=== PATIENT | male | born 1970 | race Caucasian/White ===

== ENCOUNTER 2017-12-16 11:14 | Emergency (ER) | payer OTHER, BC ==
[2017-12-16 11:51] VITALS: BP 121/58; PULSE 75; TEMP 98.2; BMI 32.8
--- NOTE | 2017-12-16 12:39 | PDOC ---
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 There was no LOC, no other facial injury, denies dental injury. No neck or extremity injury Occurred: reports: just prior to arrival, this morning Severity: reports: moderate Pain Location: reports: face Modifying Factors: improves with: None Loss of Consciousness: no loss of consciousness Associated Symptoms (Fall): denies symptoms Past History - Travel Traveled outside of the country in the last 30 days: No Close contact w/someone who was outside of country & ill: No - Past Medical History Allergies/Adverse Reactions: Allergies Allergy/AdvReac Type Severity Reaction Status Date / Time No Known Allergies Allergy Verified 12/16/17 11:49 Home Medications: Ambulatory Orders NK [No Known Home Medication] 12/16/17 COPD: No Other medical history: multiple sclerosis - Suicide/Smoking/Psychosocial Hx Smoking History: Never smoked Hx Alcohol Use: No Drug/Substance Use Hx: No Review of Systems - Review of Systems Able to Perform ROS?: Yes Is the patient limited Kazakh proficient: Yes Constitutional: Yes: See HPI. No: Symptoms Reported HEENTM: Yes: See HPI. No: Symptoms Reported Integumentary: Yes: Symptoms Reported, See HPI. No: Other (laceration to chin) All Other Systems: Reviewed and Negative *Physical Exam - Vital Signs Last Vital Signs Temp Pulse Resp BP Pulse Ox 98.2 F 75 16 121/58 L 97 12/16/17 11:45 12/16/17 11:45 12/16/17 11:45 12/16/17 11:45 12/16/17 11:45 - Physical Exam General Appearance: Yes: Nourished, Appropriately Dressed, Apparent Distress, Mild Distress HEENT: positive: TAMIKA, Normal ENT Inspection, TMs Normal, Pharynx Normal, Other Neck: positive: Supple. 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 NML intact, Fully Oriented, Alert, Normal Mood/ Affect, Normal Response, Motor Strength 5/5 Procedures - Laceration/Wound Repair Right Face Wound Length: to 2.5 cm Wound Explored: clean Wound's Depth, Shape: linear Irrigated w/ Saline: Yes Betadine Prep: Yes Anesthesia: 1% Lidocaine Wound Repaired With: Sutures Suture Size/Type: 5:0 Number of Sutures: 6 Layer Closure: No Progress Note - Progress Note Progress Note: Status post fall with chin laceration, repaired *DC/Admit/Observation/Transfer Diagnosis at time of Disposition: Laceration of chin without complication Qualifiers: Encounter type: initial encounter Qualified Code(s): S01.81XA - Laceration without foreign body of other part of head, initial encounter - Discharge Dispostion Disposition: HOME Condition at time of disposition: Stable Decision to Admit order: No - Referrals - Patient Instructions Printed Discharge Instructions: DI for Laceration Repair Additional Instructions: Rest, elevate, avoid strenuous activity or heavy lifting until sutures are removed Leave dressing on for the next 24 hours, Then may remove dressing gently and wash area with soap and water. Reapply bacitracin ointment and dressing daily for the next 5 days On day #6 keep the wound protected and cover as needed until sutures are removed allowing wound to start to dry May use Tylenol or Motrin for pain relief Suture removal in : 7 Days - Post Discharge Activity Forms/Work/School Notes: Back to Work
[2017-12-16] MEDS ORDERED: DIPHTH,PERTUSS(ACELL),TET 0.5 ML DISP.SYRIN IM ONE (13:07)
== END 2017-12-16 13:20 | disposition home or self-care (01) ==
LOC: JERFT 11:14
PROC: 3E0234Z Introduction of Serum, Toxoid and Vaccine into Muscle, Percutaneous Approach (ICD-10-PCS; principal; 2017-12-16)
PROC: 0HQ1XZZ Repair Face Skin, External Approach (ICD-10-PCS; 2017-12-16)
DX: S01.81XA Laceration without foreign body of other part of head, initial encounter (principal); W01.198A Fall on same level from slipping, tripping and stumbling with subsequent striking against other object, initial encounter; Y93.89 Activity, other specified; Y92.69 Other specified industrial and construction area as the place of occurrence of the external cause; Y99.0 Civilian activity done for income or pay; G35 Multiple sclerosis
CPT/HCPCS: 90715; 99281-25

== ENCOUNTER 2018-06-23 09:18 | Emergency (ER) | payer BC, OTHER ==
[2018-06-23 09:36] VITALS: BMI 36.6
--- NOTE | 2018-06-23 09:57 | PDOC ---
History of Present Illness <Trena Yang - Last Filed: 06/23/18 14:10> - General History Source: Patient Exam Limitations: No Limitations - History of Present Illness Initial Comments: 06/23/18 09:55 Pt is a 47yo M with PMH of Multiple Sclerosis presenting to ED for chest discomfort. Pt states the symptoms started yesterday, woke him up from his sleep at around 4:30am. He states he felt palpitations x2 minutes and a discomfort in the middle of his chest for 10 minutes. He took alkaseltzer and the sensation resolved. Pain returned again today this morning at around the same time but less severe and resolved on its own. At around 8am while pt was at work, he drank coffee and afterward the sensation returned but this time he felt "a sensation" on the L side of his face which is different than the MS. The sensation was brief and pt describes it as "when your hand falls asleep". Pt is not having active complaints at this time. Denies sob, cough, recent illnesses, leg swelling, recent travel/surgery, abdominal pain, n/v/d, FH of CO , FH of clotting d/o. PMD: Gabby Neuro: Alycia PMH: see hpi PSH: none Meds: see med rec Allergies: nkda Social: denies <Elissa Stover - Last Filed: 06/23/18 14:14> - General Chief Complaint: Palpitations Stated Complaint: CHEST PAIN Time Seen by Provider: 06/23/18 09:37 Past History <Trena Yang - Last Filed: 06/23/18 14:10> - Past Medical History COPD: No Other medical history: MS - Suicide/Smoking/Psychosocial Hx Smoking History: Unknown if ever smoked Hx Alcohol Use: No Drug/Substance Use Hx: No <Elissa Stover - Last Filed: 06/23/18 14:14> - Past Medical History Allergies/Adverse Reactions: Allergies Allergy/AdvReac Type Severity Reaction Status Date / Time No Known Allergies Allergy Verified 06/23/18 09:36 Home Medications: Ambulatory Orders Baclofen 10 mg PO TID 06/23/18 Natalizumab [Tysabri] 200 mg IV MONTHLY 06/23/18 *Physical Exam - Vital Signs Last Vital Signs Temp Pulse Resp BP Pulse Ox 98.5 F 74 18 144/68 99 04/02/19 09:50 06/23/18 09:50 06/23/18 09:50 06/23/18 09:50 06/23/18 09:50 <Trena Yangyulia - Last Filed: 06/23/18 14:10> - Vital Signs Last Vital Signs Temp Pulse Resp BP Pulse Ox 98.3 F 78 17 136/64 99 06/23/18 09:29 06/23/18 09:29 06/23/18 09:29 06/23/18 09:29 06/23/18 09:29 <Elissa Stover - Last Filed: 06/23/18 14:14> ED Treatment Course - LABORATORY CBC & Chemistry Diagram: 06/23/18 10:15 06/23/18 10:15 - ADDITIONAL ORDERS Additional order review: Laboratory Results 06/23/18 06/23/18 06/23/18 13:18 10:15 10:15 Sodium 139 Cancelled Potassium 4.1 Cancelled Chloride 106 Cancelled Carbon Dioxide 26 Cancelled Anion Gap 7 L Cancelled BUN 10 Cancelled Creatinine 0.9 Cancelled Creat Clearance w eGFR 91.25 Cancelled Random Glucose 114 H Cancelled Calcium 9.3 Cancelled Magnesium 2.3 Cancelled Total Bilirubin 0.5 Cancelled AST 19 Cancelled ALT 45 Cancelled Alkaline Phosphatase 102 Cancelled Troponin I < 0.02 < 0.02 Total Protein 7.1 Cancelled Albumin 4.2 Cancelled Lipase 177 06/23/18 10:15 RBC 4.75 MCV 90.8 MCHC 33.8 RDW 14.0 MPV 10.2 Neutrophils % 70.3 Lymphocytes % 19.9 Monocytes % 5.5 Eosinophils % 3.4 Basophils % 0.9 - Medications Given in the ED: ED Medications Discontinued Medications Generic Name Dose Route Start Last Admin Trade Name Freq PRN Reason Stop Dose Admin Al Hydroxide/Mg Hydroxide 30 ml 06/23/18 11:09 06/23/18 11:25 Mylanta Oral Suspension - PO 06/23/18 11:10 30 ml ONCE ONE Administration Famotidine/Sodium Chloride 20 mg in 50 mls @ 100 mls/hr 06/23/18 11:09 11:25 Pepcid 20 Mg Premixed Ivpb - IVPB 06/23/18 11:38 100 mls/hr ONCE ONE Administration <Trena Yang - Last Filed: 06/23/18 14:10> - LABORATORY CBC & Chemistry Diagram: 06/23/18 10:15 06/23/18 10:15 <Elissa Stover - Last Filed: 06/23/18 14:14> Medical Decision Making - Medical Decision Making 06/23/18 10:39 Pt is a 47yo M with PMH of Multiple Sclerosis presenting to ED for chest discomfort. Pt states the symptoms started yesterday, woke him up from his sleep at around 4:30am. He states he felt palpitations x2 minutes and a discomfort in the middle of his chest for 10 minutes. He took alkaseltzer and the sensation resolved. Pain returned again today this morning at around the same time but less severe and resolved on its own. At around 8am while pt was at work, he drank coffee and afterward the sensation returned but this time he felt "a sensation" on the L side of his face which is different than the MS. The sensation was brief and pt describes it as "when your hand falls asleep". Pt is not having active complaints at this time. Denies sob, cough, recent illnesses, leg swelling, recent travel/surgery, abdominal pain, n/v/d, FH of CO , FH of clotting d/o. Vitals: wnl PE: benign ddx includes but not limited to GERD, acs, pe, dissection, electrolyte/ metabolic abnormality, MS, valvular abnormality PERC negative. no risk factors for dissection. -labs -ekg, cxr Pt not having active complaints at this time. -GI cocktain ekg: nsr 06/23/18 11:21 <Elissa Stover - Last Filed: 06/23/18 14:14> *DC/Admit/Observation/Transfer <Trena Yang - Last Filed: 06/23/18 14:10> - Discharge Dispostion Decision to Admit order: No <Elissa Stover - Last Filed: 06/23/18 14:14> Diagnosis at time of Disposition: Chest pain Qualifiers: Chest pain type: unspecified Qualified Code(s): R07.9 - Chest pain, unspecified - Discharge Dispostion Disposition: HOME - Referrals Referrals: Rudi Harper MD [Staff Physician] - - Patient Instructions Printed Discharge Instructions: DI for Atypical Chest Pain Additional Instructions: You were seen in the emergency room today for chest pain. The blood tests and xray were normal. I recommend that you see a forest fire officer and primary doctor. rest and avoid stressors If you have any worsening of symptoms or any other concerns please return to the ED immediately. Return if worsening symptoms including fevers, headache, vomiting, visual or hearing disturbances, abdominal pain, chest pain, shortness of breath, syncope, dehydration, inability to take things by mouth/vomiting, altered mental status, or worsening concerning symptoms.
[2018-06-23 10:46] LABS: BASO % 0.9 % (0-2.0); EOS % 3.4 % (0-4.5); HEMATOCRIT 43.1 % (35.4-49); HEMOGLOBIN 14.6 GM/dL (11.7-16.9); LYMPH % 19.9 % (8-40); MCH 30.7 pg (25.7-33.7); MCHC 33.8 g/dl (32.0-35.9); MEAN CELL VOLUME 90.8 fl (80-96); MEAN PLT VOLUME 10.2 fl (7.5-11.1); MONO % 5.5 % (3.8-10.2); NEUT % 70.3 % (42.8-82.8); PLATELET COUNT 245 K/MM3 (134-434); RBC 4.75 M/mm3 (4.00-5.60); WHITE BLOOD COUNT 11.6 K/mm3 (4.0-10.0)
--- NOTE | 2018-06-23 10:50 | PDOC ---
Attending Attestation - Resident Resident Name: Elissa Stover - ED Attending Attestation I have performed the following: I have examined & evaluated the patient, The case was reviewed & discussed with the resident, I agree w/resident's findings & plan - HPI HPI: 06/23/18 10:49 Pt is a 47yo M with PMH of Multiple Sclerosis presenting to ED for chest discomfort, a/w palpitations, starting yesterday, and woke up from sleep this morning this morning at 430AM, then sx at 730AM. Brief episode of palpitations lasting 2 min, chest discomfort x 10 min, self resolved. Nonexertional, nonradiating. +left jaw/facial numbness/tingling, not associated with cp or palp or sob. Agree with the resident's HPI and PE as documented in the electronic medical record. 06/23/18 11:52 - Physicial Exam PE: 06/23/18 10:49 NAD, well appearing, PERRL, EOMI, MMM, nl conjunctiva, anicteric; neck supple. lungs clear, RRR, abdomen soft nontender. MARIE x4, no focal neuro deficits. No peripheral edema. normal color for ethnicity, WW. - Medical Decision Making 06/23/18 11:52 See HPI for details Vital signs reviewed, wnl. DDx chest pain: ACS, coronary vasospasm, NSTEMI, arrhythmia, unstable angina, PE , dissection, PUD, esophageal spasm, GERD, gastritis, costochondritis, pneumonia , pleurisy, pericarditis/myocarditis. dehydration, electrolyte/metabolic derangements. Considered but clinically doubt based on HPI and PE: PE, PERC neg so low likelihood of VTE/PE, dissection. Prior notes reviewed, including admissions, discharges and consultations. laboratory results and imaging reviewed, basic labs and lytes wnl, notable for normal LFTs and lipase. nonspecific mild leukocytosis of 11.5K, no fever or systemic sx, likely reactive. CXR_unremarkable, no acute chest pathology Cardiac panel_trop neg x2, so less likely cardiac. heart score only 0, low risk for mace <1.7% at 4-6 wks. EKG normal sinus rhythm at 77 bpm, no interval abnormalities, narrow QRS, ST and T wave segments and morphology normal. TWF and low QRS in III only, no contiguous lead changes. ED course -No acute events, well appearing. -Given GI cocktail, no active cp, feels clinically improved and VS wnl. - repeat trop x2 neg, EKG unchanged, no ischemic findings and cp free. - cards referral given, Dr Harper medical office professional instructor. Dispo: Pt informed of my clinical impression, treatment recommendations and disposition plan. All questions answered to patient's satisfaction and expressed understanding and comfort with this. Reasons for returning to the ED sooner discussed with the patient otherwise, follow up with primary care physician. At the time of discharge, the patient is alert, clinically improved, tolerating po and verbalizes understanding of instructions. Patient does not suffer from an acute life-threatening medical condition at this time he is safe for outpatient follow-up. 06/23/18 11:55 06/23/18 11:56 06/23/18 14:12 Heart Score/ECG Review - History History: Slightly suspicious - Electrocardiogram EKG: Normal - Age Age: </= 45 - Risk Factors Based on the list above the patient has:: No risk factors known - Troponin Troponin: </= normal limit - Score Heart Score - Total: 0 #1 ECG reviewed & interpreted by me at: 09:15 General ECG Interpretation: Sinus Rhythm, Normal Rate, Normal Intervals 06/23/18 10:49 EKG normal sinus rhythm at 77 bpm, no interval abnormalities, narrow QRS, ST and T wave segments and morphology normal. TWF and low QRS in III only, no contiguous lead changes.
[2018-06-23] MEDS ORDERED: MAG HYDROX/AL HYDROX/SIMETH 30 ML UNIT-DOSE CUP PO ONE (11:09)
[2018-06-23] MEDS ORDERED: FAMOTIDINE 20 MG/50 ML IVPB 20 MG/50 ML MG IVPB ONE ×2 (11:09→11:21)
[2018-06-23 11:10] LABS: LIPASE 177 U/L (73-393)
[2018-06-23] MEDS ORDERED: MAG HYDROX/AL HYDROX/SIMETH 30 ML UNIT-DOSE CUP ONE (11:20)
[2018-06-23 11:23] LABS: ALBUMIN 4.2 g/dl (3.4-5.0); ALK PHOS 102 U/L (45-117); ANION GAP 7 MMOL/L (8-16); BILIRUBIN,TOTAL 0.5 mg/dL (0.2-1); BLOOD UREA NITROGEN 10 mg/dL (7-18); CALCIUM 9.3 mg/dL (8.5-10.1); CHLORIDE 106 mmol/L (98-107); CO2 26 mmol/L (21-32); CREATININE 0.9 mg/dL (0.55-1.3); GLUCOSE,RANDOM 114 mg/dL (74-106); MAGNESIUM 2.3 mg/dL (1.8-2.4); POTASSIUM 4.1 mmol/L (3.5-5.1); SGOT/AST 19 U/L (15-37); SGPT/ALT 45 U/L (13-61); SODIUM 139 mmol/L (136-145); TOT PROT 7.1 g/dl (6.4-8.2)
[2018-06-23 14:33] VITALS: BP 144/82; PULSE 84; TEMP 98
--- NOTE | 2018-06-24 10:09 | EKG ---
Test Reason : Blood Pressure : / mmHG Vent. Rate : 077 BPM Atrial Rate : 077 BPM P-R Int : 154 ms QRS Dur : 072 ms QT Int : 384 ms P-R-T Axes : 063 019 037 degrees QTc Int : 434 ms NORMAL SINUS RHYTHM POSSIBLE LEFT ATRIAL ENLARGEMENT BORDERLINE ECG WHEN COMPARED WITH ECG OF 12-DEC-2010 23:59, VENT. RATE HAS DECREASED BY 48 BPM Confirmed by ROGERIO MULLIGAN, MERT ([id number]) on 06/24/2018 10:09:42 AM Referred By: Confirmed By:MERT BEATTY MD
--- NOTE | 2018-06-24 10:14 | EKG ---
Test Reason : Blood Pressure : / mmHG Vent. Rate : 079 BPM Atrial Rate : 079 BPM P-R Int : 146 ms QRS Dur : 070 ms QT Int : 388 ms P-R-T Axes : 066 036 023 degrees QTc Int : 444 ms NORMAL SINUS RHYTHM WITH SINUS ARRHYTHMIA NORMAL ECG WHEN COMPARED WITH ECG OF 12-DEC-2010 23:59, VENT. RATE HAS DECREASED BY 46 BPM Confirmed by ROGERIO MULLIGAN, MERT ([id number]) on 06/24/2018 10:13:47 AM Referred By: Confirmed By:MERT BEATTY MD
== END 2018-06-23 14:46 | disposition home or self-care (01) ==
LOC: JER 09:18
PROC: 3E033GC Introduction of Other Therapeutic Substance into Peripheral Vein, Percutaneous Approach (ICD-10-PCS; principal; 2018-06-23)
DX: R07.9 Chest pain, unspecified (principal); G35 Multiple sclerosis
CPT/HCPCS: 36415; 71046-TC-FY; 80053; 83690; 83735; 84484; 85025; 93005; 93010; 99285-25

== ENCOUNTER 2018-06-24 04:28 | Emergency (ER) | payer BC ==
[2018-06-24 04:55] VITALS: BMI 32.2
--- NOTE | 2018-06-24 05:34 | PDOC ---
Attending Attestation - HPI HPI: 06/24/18 05:45 The patient is a 47 year old male, with a significant past medical history of MS , who presents to the emergency department with, palpitations and epigastric discomfort. Patient notes being evaluated for a similar episode 06/23 at which time he had a negative workup and was discharged home. He denies any recent fevers, chills, headache or dizziness. He denies any recent nausea, vomit, diarrhea or constipation. He denies any recent dysuria, frequency, urgency or hematuria. Allergies: NKDA Primary Care Physician: Dr. Murillo Neurologist: Dr. Tong - Physicial Exam PE: 06/24/18 05:45 Agree with resident exam. <George Rizzo - Last Filed: 06/24/18 05:45> - Resident Resident Name: Doug Montez - ED Attending Attestation I have performed the following: I have examined & evaluated the patient, The case was reviewed & discussed with the resident, I agree w/resident's findings & plan - Medical Decision Making 06/24/18 06:03 47-year-old male complaining of palpitations substernal discomfort and tightening to the left jaw yesterday and today Patient seen in the emergency department with a negative workup but states it happened again so he came in for evaluation Plan for observation stay in light of worsening symptoms EKG today showed a normal sinus rhythm at 75 bpm with no acute ST elevations <So Horton - Last Filed: 06/24/18 06:05> Attestations - Attestations 06/24/18 05:45 Documentation prepared by George Rizzo, acting as medical claims analyst for So Horton DO. <George Rizzo - Last Filed: 06/24/18 05:45>
[2018-06-24 06:11] LABS: BASO % 0.9 % (0-2.0); EOS % 2.4 % (0-4.5); HEMATOCRIT 40.8 % (35.4-49); HEMOGLOBIN 13.9 GM/dL (11.7-16.9); LYMPH % 29.5 % (8-40); MCH 30.4 pg (25.7-33.7); MEAN CELL VOLUME 89.5 fl (80-96); MEAN PLT VOLUME 9.5 fl (7.5-11.1); NEUT % 60.2 % (42.8-82.8); PLATELET COUNT 227 K/MM3 (134-434); RBC 4.56 M/mm3 (4.00-5.60); RDW 13.9 % (11.9-15.9); WHITE BLOOD COUNT 11.4 K/mm3 (4.0-10.0)
--- NOTE | 2018-06-24 06:32 | PDOC ---
History of Present Illness - General Chief Complaint: Pain Stated Complaint: ABD PAIN Time Seen by Provider: 06/24/18 05:24 - History of Present Illness Initial Comments: 06/24/18 06:35 47M with pmh of MS, who presents to the emergency department with, palpitations and epigastric discomfort for the pasr 3-5 days. Evaluated and discharged yesterday morning 06/23 at which time he had a negative workup and was discharged home. He denies any recent fevers, chills, headache or dizziness. He denies any recent nausea, vomit, diarrhea or constipation. He denies any recent dysuria, frequency, urgency or hematuria. Allergies: NKDA Primary Care Physician: Dr. Murillo Neurologist: Dr. Tong Past History - Past Medical History Allergies/Adverse Reactions: Allergies Allergy/AdvReac Type Severity Reaction Status Date / Time No Known Allergies Allergy Verified 06/23/18 09:36 Home Medications: Ambulatory Orders Baclofen 10 mg PO TID 06/23/18 Natalizumab [Tysabri] 200 mg IV MONTHLY 06/23/18 COPD: No - Suicide/Smoking/Psychosocial Hx Smoking History: Never smoked Have you smoked in the past 12 months: No Hx Alcohol Use: No Drug/Substance Use Hx: No Review of Systems - Review of Systems Able to Perform ROS?: Yes Is the patient limited Brazilian proficient: No Constitutional: No: Symptoms Reported HEENTM: No: Symptoms Reported Respiratory: No: Symptoms reported Cardiac (ROS): Yes: See HPI ABD/GI: Yes: See HPI : No: Symptoms Reported Musculoskeletal: No: Symptoms Reported Integumentary: No: Symptoms Reported All Other Systems: Reviewed and Negative *Physical Exam - Vital Signs Last Vital Signs Temp Pulse Resp BP Pulse Ox 97.5 F L 77 16 113/65 100 06/24/18 04:48 06/24/18 04:48 06/24/18 04:48 06/24/18 04:48 06/24/18 04:48 - Physical Exam General Appearance: Yes: Nourished, Appropriately Dressed. No: Apparent Distress HEENT: positive: EOMI, TAMIKA, Normal ENT Inspection Respiratory/Chest: positive: Lungs Clear, Normal Breath Sounds. negative: Chest Tender, Respiratory Distress Cardiovascular: positive: Regular Rhythm, Regular Rate, S1, S2 Gastrointestinal/Abdominal: positive: Normal Bowel Sounds, Flat, Soft. negative : Tender Musculoskeletal: positive: Normal Inspection. negative: CVA Tenderness Neurologic: positive: Fully Oriented, Normal Mood/Affect, Normal Response, Motor Strength 07/26 ED Treatment Course - LABORATORY CBC & Chemistry Diagram: 06/24/18 06:03 06/24/18 06:03 - ADDITIONAL ORDERS Additional order review: 06/24/18 06:03 RBC 4.56 MCV 89.5 MCHC 34.0 RDW 13.9 MPV 9.5 Neutrophils % 60.2 Lymphocytes % 29.5 D Monocytes % 7.0 Eosinophils % 2.4 Basophils % 0.9 Medical Decision Making - Medical Decision Making 06/24/18 06:38 47M with palpitations substernal discomfort and tightening to the left jaw yesterday and today EKG today showed a normal sinus rhythm at 75 bpm with no acute ST elevations Normal ekg again today. Will redraw basic labs, tsh and admit for obs due to worsening symptoms with cardio consult. Anxiety vs thyroid vs cardiac arrhythmia needing holter evaluation. 06/24/18 07:02 Patient signed out to Dr. Lara *DC/Admit/Observation/Transfer Diagnosis at time of Disposition: Palpitation - Referrals Referrals: Tessie Suh MD [Primary Care Provider] - - Patient Instructions - Post Discharge Activity
[2018-06-24 06:51] LABS: ALBUMIN 3.7 g/dl (3.4-5.0); ALK PHOS 89 U/L (45-117); ANION GAP 4 MMOL/L (8-16); BILIRUBIN,TOTAL 0.6 mg/dL (0.2-1); BLOOD UREA NITROGEN 13 mg/dL (7-18); CALCIUM 8.7 mg/dL (8.5-10.1); CHLORIDE 110 mmol/L (98-107); CO2 27 mmol/L (21-32); CREATININE 0.8 mg/dL (0.55-1.3); GLUCOSE,RANDOM 112 mg/dL (74-106); POTASSIUM 3.8 mmol/L (3.5-5.1); SGOT/AST 17 U/L (15-37); SGPT/ALT 40 U/L (13-61); SODIUM 140 mmol/L (136-145); TOT PROT 6.3 g/dl (6.4-8.2)
--- NOTE | 2018-06-24 07:29 | PDOC ---
*Physical Exam - Vital Signs Last Vital Signs Temp Pulse Resp BP Pulse Ox 97.5 F L 77 16 113/65 100 06/24/18 04:48 06/24/18 04:48 06/24/18 04:48 06/24/18 04:48 06/24/18 04:48 ED Treatment Course - LABORATORY CBC & Chemistry Diagram: 06/24/18 06:03 06/24/18 06:03 - ADDITIONAL ORDERS Additional order review: Laboratory Results 06/24/18 06:03 Sodium 140 Potassium 3.8 Chloride 110 H Carbon Dioxide 27 Anion Gap 4 L BUN 13 Creatinine 0.8 Creat Clearance w eGFR 104.54 Random Glucose 112 H Calcium 8.7 Total Bilirubin 0.6 AST 17 ALT 40 Alkaline Phosphatase 89 Troponin I < 0.02 Total Protein 6.3 L Albumin 3.7 TSH 1.26 06/24/18 06:03 RBC 4.56 MCV 89.5 MCHC 34.0 RDW 13.9 MPV 9.5 Neutrophils % 60.2 Lymphocytes % 29.5 D Monocytes % 7.0 Eosinophils % 2.4 Basophils % 0.9 Medical Decision Making - Medical Decision Making 06/24/18 07:10 Sign out received from Dr Montez. Juliocesar Collazo is a 47yo man with a PMH of MS who presented overnight for the second day in a row with palpitations and substernal discomfort that radiated to the left jaw. ED course notable for normal EKG, labs sent - Labs reviewed. Unremarkable - Given worsening symptoms and persistent feeling of palpitations, will likely need echo and car 06/24/18 07:29 - Re-evaluated Mr Collazo. Now feeling well, but reports that he has had palpitations and feeling of suffocation that woke him at around 3am multiple times over the past week. Possible sleep apnea; mother and report snoring and restless sleeping. - Will recheck EKG and trop. - Echo ordered for evaluation. Reports having echo in the past; will compare - Plan to call PMD after additional tests completed to discuss dispo vs admit/ obs if any abnormalities are noted. 06/24/18 12:03 - Echo completed. No concerning abnormalities. - Call placed to PMD's office. Requested call back - Updated pt and family regarding results - Spoke to Dr Ross. Would prefer to see Mr Collazo in the ED. 06/24/18 12:32 - Seen by Dr Ross. Agrees with plan, will set up for holter monitor - Will d/c home. Discussed with Dr Carranza. Amanda Lara PGY1 *DC/Admit/Observation/Transfer Diagnosis at time of Disposition: Palpitation, Chest pain - Discharge Dispostion Disposition: HOME Condition at time of disposition: Stable Decision to Admit order: No - Referrals Referrals: Tessie Suh MD [Primary Care Provider] - Sivakumar Puente MD [Staff Physician] - - Patient Instructions Printed Discharge Instructions: DI for Chest Pain, DI for Palpitations Additional Instructions: Discharge Instructions: You were seen in the emergency deparmtent for chest pain and palpitations that have been occuring for the past week. You had blood tests, two sets of cardiac enzymes, two EKG's, and an echocardiogram. All of your results were normal. Home Care and Follow Up: - Continue taking all of your regular home medications as prescribed. - Make an appointment to see your regular doctor for follow up within the next week. - You will need to set up a follow up appointment with Dr Olsen (cardiology ) as soon as possible - Seek immediate medical care if you have worsening symptoms, difficulty breathing, chest pain with exercise, or any other medical emergency. - Post Discharge Activity
--- NOTE | 2018-06-24 10:15 | EKG ---
Test Reason : Blood Pressure : / mmHG Vent. Rate : 075 BPM Atrial Rate : 075 BPM P-R Int : 154 ms QRS Dur : 080 ms QT Int : 394 ms P-R-T Axes : 064 029 033 degrees QTc Int : 439 ms NORMAL SINUS RHYTHM NORMAL ECG WHEN COMPARED WITH ECG OF 23-JUN-2018 13:17, NO SIGNIFICANT CHANGE WAS FOUND Confirmed by MERT BEATTY MD ([id number]) on 06/24/2018 10:15:37 AM Referred By: Confirmed By:MERT BEATTY MD
--- NOTE | 2018-06-24 12:12 | PDOC ---
*Physical Exam - Vital Signs Last Vital Signs Temp Pulse Resp BP Pulse Ox 97.5 F L 77 16 113/65 100 06/24/18 04:48 06/24/18 04:48 06/24/18 07:22 06/24/18 04:48 06/24/18 07:22 - Physical Exam Comments: 06/24/18 12:09 Patient endorsed to me by Dr. Horton. Patient is a 47-year-old male with history of MS onto Sabri presents to the ER with recurrent palpitations and shortness of breath that resolves prior to presentation. Symptoms occur predominantly at night and awakened the patient from sleep. There is no history of toxic ingestion or history of early cardiac in the family. In the ER, patient is awake and alert, well-appearing, hemodynamically stable. EKG shows no evidence of acute ischemia. 2 sets of cardiac enzymes are within normal limit. 2-D echocardiogram reveals no evidence of LV dysfunction or significant valvular pathology. Patient seen by Dr. Marcy liu of cardiology. Patient is safe for outpatient follow-up for further evaluation. I also advised the patient that he may benefit from sleep apnea testing. Case discussed with PMD, Claude Loyola and he agrees with the plan of care. Will discharge. ED Treatment Course - LABORATORY CBC & Chemistry Diagram: 06/24/18 06:03 06/24/18 06:03 - ADDITIONAL ORDERS Additional order review: Laboratory Results 06/24/18 06/24/18 08:50 06:03 Sodium 140 Potassium 3.8 Chloride 110 H Carbon Dioxide 27 Anion Gap 4 L BUN 13 Creatinine 0.8 Creat Clearance w eGFR 104.54 Random Glucose 112 H Calcium 8.7 Total Bilirubin 0.6 AST 17 ALT 40 Alkaline Phosphatase 89 Troponin I < 0.02 < 0.02 Total Protein 6.3 L Albumin 3.7 TSH 1.26 06/24/18 06:03 RBC 4.56 MCV 89.5 MCHC 34.0 RDW 13.9 MPV 9.5 Neutrophils % 60.2 Lymphocytes % 29.5 D Monocytes % 7.0 Eosinophils % 2.4 Basophils % 0.9 *DC/Admit/Observation/Transfer Diagnosis at time of Disposition: Palpitation Chest pain Qualifiers: Chest pain type: unspecified Qualified Code(s): R07.9 - Chest pain, unspecified - Discharge Dispostion Disposition: HOME Condition at time of disposition: Stable - Referrals Referrals: Tessie Suh MD [Primary Care Provider] - Sivakumar Puente MD [Staff Physician] - - Patient Instructions Printed Discharge Instructions: DI for Chest Pain, DI for Palpitations Additional Instructions: Discharge Instructions: You were seen in the emergency deparmtent for chest pain and palpitations that have been occuring for the past week. You had blood tests, two sets of cardiac enzymes, two EKG's, and an echocardiogram. All of your results were normal. Home Care and Follow Up: - Continue taking all of your regular home medications as prescribed. - Make an appointment to see your regular doctor for follow up within the next week. - You will need to set up a follow up appointment with Dr Olsen (cardiology ) as soon as possible - Seek immediate medical care if you have worsening symptoms, difficulty breathing, chest pain with exercise, or any other medical emergency. - Post Discharge Activity
--- NOTE | 2018-06-24 12:21 | CON.CARD ---
Consult Consult Specialty:: Cardiology - History of Present Illness History of Present Illness: 47M with pmh of MS, who presents to the emergency department with, palpitations and epigastric discomfort for the pasr 3-5 days. Evaluated and discharged yesterday morning 06/23 at which time he had a negative workup and was discharged home. He denies any recent fevers, chills, headache or dizziness. He denies any recent nausea, vomit, diarrhea or constipation. He denies any recent dysuria, frequency, urgency or hematuria. Allergies: NKDA Primary Care Physician: Dr. Murillo Neurologist: Dr. Tong - History Source History Provided By: Patient, Medical Record - Alcohol/Substance Use Hx Alcohol Use: No - Smoking History Smoking history: Never smoked Have you smoked in the past 12 months: No Home Medications - Allergies Allergies/Adverse Reactions: Allergies Allergy/AdvReac Type Severity Reaction Status Date / Time No Known Allergies Allergy Verified 06/23/18 09:36 - Home Medications Home Medications: Ambulatory Orders Baclofen 10 mg PO TID 06/23/18 Natalizumab [Tysabri] 200 mg IV MONTHLY 06/23/18 Review of Systems - Review of Systems Constitutional: reports: No Symptoms Eyes: reports: No Symptoms HENT: reports: No Symptoms Cardiovascular: reports: Palpitations Respiratory: reports: No Symptoms Gastrointestinal: reports: No Symptoms Genitourinary: reports: No Symptoms Breasts: reports: No Symptoms Reported Musculoskeletal: reports: No Symptoms Integumentary: reports: No Symptoms Neurological: reports: No Symptoms Endocrine: reports: No Symptoms Hematology/Lymphatic: reports: No Symptoms Psychiatric: reports: No Symptoms Vital Signs: Vital Signs Temperature 97.5 F L 06/24/18 04:48 Pulse Rate 77 06/24/18 04:48 Respiratory Rate 16 06/24/18 07:22 Blood Pressure 113/65 06/24/18 04:48 O2 Sat by Pulse Oximetry (%) 100 06/24/18 07:22 Constitutional: Yes: Well Nourished, No Distress, Calm Eyes: Yes: WNL, Conjunctiva Clear, EOM Intact HENT: Yes: WNL, Atraumatic, Normocephalic Neck: Yes: WNL, Supple, Trachea Midline Respiratory: Yes: WNL, Regular, CTA Bilaterally Gastrointestinal: Yes: WNL, Normal Bowel Sounds Renal/: Yes: WNL Cardiovascular: Yes: WNL, Regular Rate and Rhythm Musculoskeletal: Yes: WNL Extremities: Yes: WNL Integumentary: Yes: WNL Neurological: Yes: WNL, Alert, Oriented ...Motor Strength: WNL Psychiatric: Yes: WNL, Alert, Oriented - Other Data Labs, Other Data: CBC, BMP 06/24/18 06:03 06/24/18 06:03 Troponin, BNP 06/24/18 06/24/18 06:03 08:50 Troponin I < 0.02 < 0.02 Troponin, BNP 06/24/18 06/24/18 06:03 08:50 Troponin I < 0.02 < 0.02 Imaging - Results EKG: Image Reviewed (sr wnl) Problem List - Problems (1) Chest pain Code(s): R07.9 - CHEST PAIN, UNSPECIFIED (2) Palpitation Code(s): R00.2 - PALPITATIONS (3) Laceration of chin without complication Code(s): S01.81XA - LACERATION W/O FOREIGN BODY OF OTH PART OF HEAD, INIT ENCNTR Qualifiers: Encounter type: initial encounter Qualified Code(s): S01.81XA - Laceration without foreign body of other part of head, initial encounter Assessment/Plan MS palpitations -at night no cp echo ekg ce negative Plan 24 holter as outpatient lipid profile r/o sleep apnea
--- NOTE | 2018-06-24 13:24 | EKG ---
Test Reason : Blood Pressure : / mmHG Vent. Rate : 073 BPM Atrial Rate : 073 BPM P-R Int : 154 ms QRS Dur : 082 ms QT Int : 388 ms P-R-T Axes : 052 034 042 degrees QTc Int : 427 ms NORMAL SINUS RHYTHM NORMAL ECG WHEN COMPARED WITH ECG OF 24-JUN-2018 05:23, NO SIGNIFICANT CHANGE WAS FOUND Confirmed by MERT BEATTY MD ([id number]) on 06/24/2018 1:24:17 PM Referred By: Confirmed By:MERT BEATTY MD
[2018-06-24 14:49] VITALS: BP 112/51; PULSE 79; TEMP 98
--- NOTE | 2018-06-25 07:39 | ECHO ---
Name: GENNY BHARDWAJ Exam:Adult Echocardiogram Study Date: 06/24/2018 09:20 AM Age: 47 yrs Reason For Study: PALPITATIONS Height: 67 in Weight: 206 lb BSA: 2.0 m2 MMode/2D Measurements & Calculations IVSd: 0.65 cm Ao root diam: 3.4 cm LVIDd: 5.0 cm LA dimension: 3.0 cm LVIDs: 3.2 cm ACS: 1.9 cm LVPWd: 0.74 cm IVSs: 1.1 cm LVPWs: 1.3 cm EDV(Teich): 119.5 ml ESV(Teich): 41.0 ml Doppler Measurements & Calculations MV E max rayray: 67.1 cm/sec Ao V2 max: 120.8 cm/sec MV A max rayray: 60.7 cm/sec Ao max P.8 mmHg MV E/A: 1.1 Ao V2 mean: 82.8 cm/sec Ao mean P.2 mmHg Ao V2 VTI: 23.6 cm Med Peak E' Rayray: 10.6 cm/sec Med E/e': 6.3 Lat Peak E' Rayray: 15.7 cm/sec Lat E/e': 4.3 Procedure A two-dimensional transthoracic echocardiogram with color flow and Doppler was performed. Left Ventricle The left ventricular size, thickness and function are normal. The left ventricular ejection fraction is normal. Left Ventricular Filling pattern is normal for age. The left ventricular wall motion is phu l. Right Ventricle The right ventricle is not well visualized. Atria Normal left and right atrial size and function. Mitral Valve There is trivial mitral valve thickening. There is no mitral valve stenosis. There is trace mitral regurgitation. Tricuspid Valve There is trivial tricuspid valve thickening. There is no tricuspid stenosis. There was insufficient T R detected to calculate RV systolic pressure. Aortic Valve The aortic valve is normal in structure and function. No hemodynamically significant valvular aortic stenosis. No aortic regurgitation is present. Pulmonic Valve The pulmonic valve is not well visualized. Great Vessels The aortic root is normal size. Pericardium/Pleura Trivial pericardial effusion not hemodynamically significant. Interpretation Summary The left ventricular size, thickness and function are normal The left ventricular ejection fraction is normal. The left ventricular wall motion is normal. There was insufficient TR detected to calculate RV systolic pressure. Left Ventricular Filling pattern is normal for age. Trivial pericardial effusion not hemodynamically significant The right ventricle is not well visualized. There is trace mitral regurgitation. MD Rudi Harper 06/24/2018 11:03 AM
== END 2018-06-24 12:30 | disposition home or self-care (01) ==
LOC: JER 04:28
DX: R00.2 Palpitations (principal)
CPT/HCPCS: 36415; 80053; 84443; 84484; 85025; 93005; 93010; 93306-TC; 99284-25

== ENCOUNTER 2018-06-24 17:42 | Inpatient (IN) | payer BC ==
--- NOTE | 2018-06-24 18:18 | PDOC ---
History of Present Illness - General Chief Complaint: Nausea Stated Complaint: NAUSEA Time Seen by Provider: 06/24/18 17:51 History Source: Patient, Parent(s) (Mother present at bedside.), Spouse ( present at bedside.), Old Records Exam Limitations: No Limitations - History of Present Illness Initial Comments: HPI: 47 y/o male BIBEMS to [facility] ER complaining of a near syncopal episode with persistent nausea. Pt states he suddenly felt like I was going to pass out while walking to the bathroom after waking from a nap. Reports feeling cold and clamminess in both hands as well as shortness of breath with rapid breathing. The episode lasted approx. 20 minutes in duration before resolving spontaneously. Denies loss of consciousness. Vida nauseous with occasional burping after the incident. Walks with cane or rollator. No change in ability to ambulate. No known sick contacts. This is the pts third visit to this department in the past two days. The previous chief complaints were for 2-3 minutes of palpitations. Pt was evaluated in the emergency department by cardiology this morning after undergoing reportedly normal Echo. Pt has a h/o of MS managed with monthly infusion of Tysabri, last in middle of May. No change in dosage or medication regimen. Followed by Dr. Tong. Last MRI in [facility] dated 12/13/2010. Not sure of the date of last MS flair. Neurologist: Dr. 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 Denies known toxic exposures. - Denies recent travel in past two months. - EtOH: Social, denies any in last 48 hours - Tobacco: Denies - Street Drugs: Denies - No new tattoos or piercings Medical Hx: - Multiple Sclerosis Surgical Hx: - Pt denies past surgical history. Past History - Past Medical History Allergies/Adverse Reactions: Allergies Allergy/AdvReac Type Severity Reaction Status Date / Time No Known Allergies Allergy Verified 06/23/18 09:36 Home Medications: Ambulatory Orders Baclofen 10 mg PO TID 06/23/18 Natalizumab [Tysabri] 200 mg IV MONTHLY 06/23/18 COPD: No - Suicide/Smoking/Psychosocial Hx Smoking History: Never smoked Have you smoked in the past 12 months: No Information on smoking cessation initiated: No Hx Alcohol Use: No Drug/Substance Use Hx: No Review of Systems - Review of Systems Able to Perform ROS?: Yes Comments:: In addition to that documented in the HPI above, the additional ROS was obtained : Constitutional: Denies fevers or chills Head: Denies vision or hearing changes ENMT: Denies sore throat CV: Denies chest pain Resp: Per HPI GI: Denies vomiting or diarrhea : Denies painful urination, increased urinary frequency, or hematuria MSK: Denies recent trauma Skin: Denies new rashes Neuro: Denies new numbness or tingling or weakness Endocrine: Denies polyuria Heme: Denies bleeding or bruising *Physical Exam - Vital Signs Last Vital Signs Temp Pulse Resp BP Pulse Ox 98.6 F 76 18 139/71 99 06/24/18 17:48 06/24/18 17:48 06/24/18 17:48 06/24/18 17:48 06/24/18 17:48 - Physical Exam Comments: Constitutional: Well-developed, well-nourished, nontoxic adult male in no acute distress or obvious discomfort. Obese body habitus. Found semi-fowlers on hospital bed. Alert and oriented x4. Answered all questions appropriately and completely. Speech was non-labored, non-pressured. Head: Normocephalic. No obvious external signs of trauma. Eyes: Pupils 3mm and PERRL bilaterally. EOMI. No vertical or horizontal nystagmus. Sclerae white. Conjunctiva moist and not injected. Ears: External auditory canals and tympanic membranes clear. Hearing grossly intact. Nose: No nasal discharge. Throat: Oral cavity and pharynx normal. No inflammation, swelling, exudate, or lesions. Teeth and gingiva in good general condition. Uvula midline. Neck: Supple, trachea is midline. Cardiovascular / Chest: Regular rate and regular rhythm. No murmur, rubs, clicks, or gallops. Peripheral pulses: radial pulses full. No pretibial edema. No R or L carotid bruit. Respiratory: Breathing unlabored. Equal chest rise and fall. Clear to auscultation bilaterally. No stridor, no wheezing, no rhonchi. Gastrointestinal: abdomen is soft, non-tender, non-distended. No pulsatile masses. No overlying skin lesions or obvious signs of trauma. Neuro: Alert and oriented. Moving all four extremities spontaneously. Cranial nerves intact. Sensation to all four extremities intact. Proximal and distal strength 5/5. Director Of Pharmacy strength 5/5 - equal and symmetric. Plantar flexion and dorsiflexion 5/5. No nuchal rigidity. Intact rapid alternating movements. Difficulty with R and L heel to puentes. Skin: Warm, dry, and intact. No bruising. Trace erythema to R and L AC in shape of bandages. Psych: Affect: appropriate. Mood: normal. ED Treatment Course - LABORATORY CBC & Chemistry Diagram: 06/24/18 18:51 06/24/18 18:51 Medical Decision Making - Medical Decision Making *Reviewed vital signs, nursing notes, and prior visit documentation (if available). 47 y/o male presenting for third visit in two days for vague near syncopal episode with resolved SOB and persistent nausea. Afebrile. Vitals unremarkable for hypotension or tachycardia. Physical exam as documented above. No localizing findings. Pt reports difficulty with heel to puentes test is baseline. Given number of visits, will test more broadly with labs including D-Dimer given SOB, though low suspicion for PE. Low suspicion for ACS given four normal troponins over past 48 hours and normal Echo. Considering MS flair. Low suspicion for infectious cause without fever or other vital sign derangement. However, pt has mild leukocytosis without left shift over the past two days. Will obtain UA, though low suspicion without reported urinary symptoms. Considering CT of head given near syncope for possible CVA/TIA. Considering CT of abdomen and pelvis for nausea and burping with consideration for mass irritating the diaphragm and causing vagal stimulation, admittedly low suspicion. Will wait for D-Dimer to result to guide imagining decision. Anticipate admission for observation. 06/24/18 19:21 Pt signed out to resident Dr. Stover after she was verbally appraised of the pts HPI, current ED course, and plan of management. Will follow up on all pending laboratory and then decide on imaging. *DC/Admit/Observation/Transfer Diagnosis at time of Disposition: Nausea - Discharge Dispostion Condition at time of disposition: Stable - Referrals - Patient Instructions - Post Discharge Activity
--- NOTE | 2018-06-24 19:00 | PDOC ---
Attending Attestation - HPI HPI: 06/24/18 19:01 The patient is a 47 year old male, with a significant PMH of MS, who presents to the emergency department for evaluation of nausea. The patient states that earlier today he began to cool and clammy when he went to the bathroom. He states he then felt lightheaded, dizzy, and SOB which lasted about 20 minutes, prompting him to call EMS. Patient denies LOC. Allergies: NKA Social history: No reported - Physicial Exam PE: 06/24/18 20:11 GENERAL: Awake, alert, and fully oriented, in no acute distress HEAD: No signs of trauma EYES: PERRLA, EOMI, sclera anicteric, conjunctiva clear ENT: Auricles normal inspection, hearing grossly normal, nares patent, oropharynx clear without exudates. Moist mucosa NECK: Normal ROM, supple, no lymphadenopathy, JVD, or masses LUNGS: Breath sounds equal, clear to auscultation bilaterally. No wheezes, and no crackles HEART: Regular rate and rhythm, normal S1 and S2, no murmurs, rubs or gallops ABDOMEN: (+) Mild epigastric tenderness. Soft, normoactive bowel sounds. No guarding, no rebound. No masses EXTREMITIES: No calf tenderness. Normal range of motion, no edema. No clubbing or cyanosis. No cords, erythema, or tenderness NEUROLOGICAL: No new focal findings. Cranial nerves II through XII grossly intact. Normal speech. SKIN: Warm, Dry, normal turgor, no rashes or lesions noted. <Anne Baez - Last Filed: 06/24/18 20:11> - Resident Resident Name: Bj Weiner - ED Attending Attestation I have performed the following: I have examined & evaluated the patient, The case was reviewed & discussed with the resident, I agree w/resident's findings & plan, Exceptions are as noted - Medical Decision Making 06/24/18 19:00 I, Dr. Sara Garcia, DO, attest that this document has been prepared under my direction and personally reviewed by me in its entirety. I further attest, that it accurately reflects all work, treatment, procedures and medical decision -making performed by me. 06/24/18 20:51 a/p: 47yo male with hx of MS who follows with Dr. Tong -had an episode of lightheadedness, dizziness today -assoc with nausea -has been having palpitations x 2 days -seen by cards earlier, trop negative x2 -will send labs, dimer, ekg, cxr -will obtain head ct, freq falls -will discuss with Dr. Tong after labs/imaging 06/25/18 00:[address] shows mild ventriculomegaly, small low-density foci posterior parietal matter b/l ct abd: no acute findings 06/25/18 00:36 resident discussed the case with EDWARDHOKAVEH- GISSEL Bojorquez who accepts pt to service <Sara Garcia - Last Filed: 06/25/18 00:36> Heart Score/ECG Review - ECG Intrepretation Comment:: 06/24/18 20:56 sinus at 77, nl axis, nl interval, no acute st/t wave findings <Sara Garcia - Last Filed: 06/25/18 00:36> Attestations - Attestations 06/24/18 19:02 Documentation prepared by Anne Baez, acting as medical concierge for Sara Garcia DO. <Anne Baez - Last Filed: 06/24/18 20:11>
[2018-06-24 19:22] LABS: BASO % 1.4 % (0-2.0); EOS % 1.9 % (0-4.5); HEMATOCRIT 44.9 % (35.4-49); HEMOGLOBIN 15.1 GM/dL (11.7-16.9); LYMPH % 30.5 % (8-40); MCH 30.6 pg (25.7-33.7); MCHC 33.7 g/dl (32.0-35.9); MEAN CELL VOLUME 90.9 fl (80-96); MEAN PLT VOLUME 10.6 fl (7.5-11.1); MONO % 5.8 % (3.8-10.2); NEUT % 60.4 % (42.8-82.8); PLATELET COUNT 286 K/MM3 (134-434); RBC 4.94 M/mm3 (4.00-5.60); RDW 14.4 % (11.9-15.9); WHITE BLOOD COUNT 12.1 K/mm3 (4.0-10.0)
--- NOTE | 2018-06-24 19:33 | PDOC ---
*Physical Exam - Vital Signs Last Vital Signs Temp Pulse Resp BP Pulse Ox 98.6 F 76 18 139/71 99 06/24/18 17:48 06/24/18 17:48 06/24/18 17:48 06/24/18 17:48 06/24/18 17:48 ED Treatment Course - LABORATORY CBC & Chemistry Diagram: 06/24/18 18:51 06/24/18 20:18 Medical Decision Making - Medical Decision Making 06/24/18 19:31 Pt endorsed to me by Dr. Weiner 47yo M with PMH of MS ZAMBRANO to ED for near syncope with nausea. Pt states he suddenly felt like I was going to pass out while walking to the bathroom after waking from a nap. Reports feeling cold and clamminess in both hands as well as shortness of breath with rapid breathing. The episode lasted approx. 20 minutes in duration before resolving spontaneously. Denies loss of consciousness. Export nauseous with occasional burping after the incident. Walks with cane or rollator. No change in ability to ambulate. No known sick contacts. labs drawn. pending D-dimer to guide imaging. labs pending WBC 12. has been 11-12 these past few visits ekg: nsr 06/24/18 19:53 chemistries and coags hemolyzed. will redraw labs wnl. Ddimer negative. CT head and CTAP 06/25/18 00:06 CT head: normal. mild ventriculomegaly CTAP: normal will admit obs for syncope. consulting Dr. Tong *DC/Admit/Observation/Transfer Diagnosis at time of Disposition: Nausea, Pre-syncope - Discharge Dispostion Condition at time of disposition: Stable - Referrals - Patient Instructions - Post Discharge Activity
[2018-06-24 20:03] LABS: PH,URINE 6.5 (5.0-8.0); URINE APPEARANCE CLEAR; URINE BILIRUBIN NEGATIVE (NEGATIVE); URINE COLOR YELLOW; URINE GLUCOSE (UA) NEGATIVE (NEGATIVE); URINE KETONE TRACE (NEGATIVE); URINE LEUK ESTERASE NEGATIVE (NEGATIVE); URINE NITRITE NEGATIVE (NEGATIVE); URINE PROTEIN NEGATIVE (NEGATIVE); URINE UROBILINOGEN 0.2 mg/dL (0.2-1.0)
[2018-06-24 20:57] LABS: INR 1.1 (0.83-1.09)
[2018-06-24 21:00] LABS: ACTIVATED PTT 33.3 SECONDS (25.2-36.5)
[2018-06-24 21:05] LABS: ALK PHOS 97 U/L (45-117); ANION GAP 8 MMOL/L (8-16); BILIRUBIN,TOTAL 0.5 mg/dL (0.2-1); BLOOD UREA NITROGEN 11 mg/dL (7-18); CALCIUM 8.9 mg/dL (8.5-10.1); CHLORIDE 109 mmol/L (98-107); CO2 26 mmol/L (21-32); CREATININE 0.9 mg/dL (0.55-1.3); GLUCOSE,RANDOM 102 mg/dL (74-106); LIPASE 192 U/L (73-393); MAGNESIUM 2.2 mg/dL (1.8-2.4); PHOSPHOROUS 2.9 mg/dL (2.5-4.9); POTASSIUM 3.9 mmol/L (3.5-5.1); SGOT/AST 17 U/L (15-37); SGPT/ALT 40 U/L (13-61); SODIUM 143 mmol/L (136-145); TOT PROT 6.6 g/dl (6.4-8.2)
[2018-06-25] MEDS ORDERED: FAMOTIDINE 20 MG/50 ML IVPB 20 MG/50 ML MG IVPB ONE (00:01)
[2018-06-25] MEDS ORDERED: SODIUM CHLORIDE 0.9% 1000 ML INFUS.BAG IV ONE (00:01)
[2018-06-25] MEDS ORDERED: ONDANSETRON 4 MG/2 ML VIAL IVPUSH ONE (00:01)
[2018-06-25] MEDS ORDERED: ACETAMINOPHEN 1000 MG/100 ML VIAL (NON FORMULARY) IVPB ONE (00:01)
[2018-06-25] MEDS ORDERED: ONDANSETRON 4 MG/2 ML VIAL ONE (00:26)
[2018-06-25] MEDS ORDERED: ACETAMINOPHEN INJECTION 100 ML IVPB ONE (00:26)
--- NOTE | 2018-06-25 01:08 | HP ---
CHIEF COMPLAINT: Near Syncope, Nausea PCP: Dr. Vladislav Baltazar HISTORY OF PRESENT ILLNESS: This is a pleasant 47 y/o man with a past medical history of MS (on Tysabi). Who presents to the ED for the third time today for near syncopal episode, palpitations, nausea. Patient reports having a nagging, burning pain in his abdomen with belching. Patient reports last Friday having palpitations, lightheadedness with belching- took Alker Rogers with some relief. He reports on Friday having palpitations "less severe", flushness he went to work "felt fine", then after drinking coffee he felt flushed began having tightness around his jaw. He reports on Friday at 3am the symptoms returned he returned to the ED and was placed on Observation, evaluated by Cardiology and had an Echo done- nl. 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 Family History: Father: Cirrhosis, DM- Mother: Alive and Healthy Allergies No Known Allergies Allergy (Verified 06/23/18 09:36) HOME MEDICATIONS: Home Medications Medication Instructions Recorded Baclofen 10 mg PO TID 06/23/18 Natalizumab [Tysabri] 200 mg IV MONTHLY 06/23/18 REVIEW OF SYSTEMS CONSTITUTIONAL: Absent: fever, chills, diaphoresis, generalized weakness, malaise, loss of appetite, weight change HEENT: Absent: rhinorrhea, nasal congestion, throat pain, throat swelling, difficulty swallowing, mouth swelling, ear pain, eye pain, visual changes CARDIOVASCULAR: near syncope, palpitations Absent: chest pain, irregular heart rate, lightheadedness, peripheral edema RESPIRATORY: Absent: cough, shortness of breath, dyspnea with exertion, orthopnea, wheezing, stridor, hemoptysis GASTROINTESTINAL: nausea Absent: abdominal pain, abdominal distension, vomiting, diarrhea, constipation, melena, hematochezia GENITOURINARY: Absent: dysuria, frequency, urgency, hesitancy, hematuria, flank pain, genital pain MUSCULOSKELETAL: Absent: myalgia, arthralgia, joint swelling, back pain, neck pain SKIN: Absent: rash, itching, pallor HEMATOLOGIC/IMMUNOLOGIC: Absent: easy bleeding, easy bruising, lymphadenopathy, frequent infections ENDOCRINE: Absent: unexplained weight gain, unexplained weight loss, heat intolerance, cold intolerance NEUROLOGIC: Absent: headache, focal weakness or paresthesias, dizziness, unsteady gait, seizure, mental status changes, bladder or bowel incontinence PSYCHIATRIC: Absent: anxiety, depression, suicidal or homicidal ideation, hallucinations. PHYSICAL EXAMINATION Vital Signs - 24 hr 06/24/18 17:48 Temperature 98.6 F Pulse Rate 76 Respiratory 18 Rate Blood Pressure 139/71 O2 Sat by Pulse 99 Oximetry (%) GENERAL: Awake, alert, and fully oriented, in no acute distress. HEAD: Normal with no signs of trauma. EYES: Pupils equal, round and reactive to light, extraocular movements intact, sclera anicteric, conjunctiva clear. No lid lag. EARS, NOSE, THROAT: Ears normal, nares patent, oropharynx clear without exudates. Moist mucous membranes. NECK: Normal range of motion, supple without lymphadenopathy, JVD, or masses. LUNGS: Breath sounds equal, clear to auscultation bilaterally. No wheezes, and no crackles. No accessory muscle use. HEART: Regular rate and rhythm, normal S1 and S2 without murmur, rub or gallop. ABDOMEN: Soft, nontender, not distended, normoactive bowel sounds, no guarding, no rebound, no masses. No hepatomegaly or splenomegaly. MUSCULOSKELETAL: Normal range of motion at all joints. No bony deformities or tenderness. No CVA tenderness. UPPER EXTREMITIES: 2+ pulses, warm, well-perfused. No cyanosis. No clubbing. No peripheral edema. LOWER EXTREMITIES: 2+ pulses, warm, well-perfused. No calf tenderness. No peripheral edema. NEUROLOGICAL: Cranial nerves II-XII intact. Normal speech. Gait not observed. PSYCHIATRIC: Cooperative. Good eye contact. Appropriate mood and affect. SKIN: Warm, dry, normal turgor, no rashes or lesions noted, normal capillary refill. Laboratory Results - last 24 hr 06/24/18 06/24/18 06/24/18 18:51 18:51 18:51 WBC 12.1 H RBC 4.94 Hgb 15.1 Hct 44.9 MCV 90.9 MCH 30.6 MCHC 33.7 RDW 14.4 Plt Count 286 D MPV 10.6 D Absolute Neuts (auto) 7.3 Neutrophils % 60.4 Lymphocytes % 30.5 Monocytes % 5.8 Eosinophils % 1.9 Basophils % 1.4 Nucleated RBC % 0 PT with INR INR PTT (Actin FS) D-Dimer Cancelled Sodium Cancelled Potassium Cancelled Chloride Cancelled Carbon Dioxide Cancelled Anion Gap Cancelled BUN Cancelled Creatinine Cancelled Creat Clearance w eGFR Cancelled Random Glucose Cancelled Calcium Cancelled Phosphorus Magnesium Total Bilirubin Cancelled AST Cancelled ALT Cancelled Alkaline Phosphatase Cancelled Creatine Kinase Cancelled Creatine Kinase Index CK-MB (CK-2) Troponin I Cancelled Total Protein Cancelled Albumin Cancelled Lipase Urine Color Urine Appearance Urine pH Ur Specific [place] Urine Protein Urine Glucose (UA) Urine Ketones Urine Blood Urine Nitrite Urine Bilirubin Urine Urobilinogen Ur Leukocyte Esterase 06/24/18 06/24/18 06/24/18 18:51 18:51 19:31 WBC RBC Hgb Hct MCV MCH MCHC RDW Plt Count MPV Absolute Neuts (auto) Neutrophils % Lymphocytes % Monocytes % Eosinophils % Basophils % Nucleated RBC % PT with INR Cancelled INR Cancelled PTT (Actin FS) Cancelled D-Dimer Sodium Potassium Chloride Carbon Dioxide Anion Gap BUN Creatinine Creat Clearance w eGFR Random Glucose Calcium Phosphorus Cancelled Magnesium Cancelled Total Bilirubin AST ALT Alkaline Phosphatase Creatine Kinase Creatine Kinase Index CK-MB (CK-2) Troponin I Total Protein Albumin Lipase Cancelled Urine Color Yellow Urine Appearance Clear Urine pH 6.5 Ur Specific [place] 1.008 L Urine Protein Negative Urine Glucose (UA) Negative Urine Ketones Trace H Urine Blood Negative Urine Nitrite Negative Urine Bilirubin Negative Urine Urobilinogen 0.2 Ur Leukocyte Esterase Negative 06/24/18 06/24/18 06/24/18 20:18 20:18 20:18 WBC RBC Hgb Hct MCV MCH MCHC RDW Plt Count MPV Absolute Neuts (auto) Neutrophils % Lymphocytes % Monocytes % Eosinophils % Basophils % Nucleated RBC % PT with INR 13.00 INR 1.10 H PTT (Actin FS) 33.3 D-Dimer < 215 Sodium 143 Potassium 3.9 Chloride 109 H Carbon Dioxide 26 Anion Gap 8 BUN 11 Creatinine 0.9 Creat Clearance w eGFR 91.25 Random Glucose 102 Calcium 8.9 Phosphorus 2.9 Magnesium 2.2 Total Bilirubin 0.5 AST 17 ALT 40 Alkaline Phosphatase 97 Creatine Kinase Creatine Kinase Index CK-MB (CK-2) Troponin I Total Protein 6.6 Albumin 4.0 Lipase Urine Color Urine Appearance Urine pH Ur Specific [place] Urine Protein Urine Glucose (UA) Urine Ketones Urine Blood Urine Nitrite Urine Bilirubin Urine Urobilinogen Ur Leukocyte Esterase 06/24/18 20:18 WBC RBC Hgb Hct MCV MCH MCHC RDW Plt Count MPV Absolute Neuts (auto) Neutrophils % Lymphocytes % Monocytes % Eosinophils % Basophils % Nucleated RBC % PT with INR INR PTT (Actin FS) D-Dimer Sodium Potassium Chloride Carbon Dioxide Anion Gap BUN Creatinine Creat Clearance w eGFR Random Glucose Calcium Phosphorus Magnesium Total Bilirubin AST ALT Alkaline Phosphatase Creatine Kinase 162 Creatine Kinase Index 0.6 CK-MB (CK-2) < 1.0 Troponin I < 0.02 Total Protein Albumin Lipase 192 Urine Color Urine Appearance Urine pH Ur Specific [place] Urine Protein Urine Glucose (UA) Urine Ketones Urine Blood Urine Nitrite Urine Bilirubin Urine Urobilinogen Ur Leukocyte Esterase ASSESSMENT/PLAN: This is a 47 y/o man with a PMHx of MS (on Tysabi). Placed in Telemetry Observation for Near Syncope, MS Exacerbation for further evaluation of their emergent condition. Plan: See Problem List FEN PO fluids as tolerated Replete lytes as needed Clear Liquid Diet DVT ppx OOB SCDs Dispo: Observation Problem List - Problem (1) Pre-syncope Assessment/Plan: Likely secondary to Arrhythmia vs MS Flare Continue cardiac monitoring Serial Enzymes Echo done 06/24- nl Appreciate Cardiology consult Appreciate Neurology consult Fall precautions Monitor CBC, BMP Consider Holter Monitor for outpatient Code(s): R55 - SYNCOPE AND COLLAPSE (2) Nausea Assessment/Plan: Zofran prn Code(s): R11.0 - NAUSEA (3) Multiple sclerosis Assessment/Plan: Will continue to monitor and treat with interventions accordingly Appreciate Neurology consult Fall Precautions Code(s): G35 - MULTIPLE SCLEROSIS (4) Heartburn Assessment/Plan: Pepcid Code(s): R12 - HEARTBURN Visit type - Emergency Visit Emergency Visit: Yes ED Registration Date: 06/24/18 Care time: The patient presented to the Emergency Department on the above date and was hospitalized for further evaluation of their emergent condition. - New Patient This patient is new to me today: Yes Date on this admission: 06/25/18 - Critical Care Critical Care patient: No
[2018-06-25] MEDS ORDERED: ONDANSETRON 4 MG/2 ML VIAL IVPUSH PRN (04:10)
[2018-06-25 05:23] LABS: EOS % 2.1 % (0-4.5); HEMATOCRIT 40.6 % (35.4-49); HEMOGLOBIN 13.8 GM/dL (11.7-16.9); LYMPH % 30.4 % (8-40); MCH 30.6 pg (25.7-33.7); MCHC 33.9 g/dl (32.0-35.9); MEAN CELL VOLUME 90.5 fl (80-96); MEAN PLT VOLUME 9.7 fl (7.5-11.1); MONO % 7.3 % (3.8-10.2); NEUT % 59.2 % (42.8-82.8); PLATELET COUNT 240 K/MM3 (134-434); RBC 4.49 M/mm3 (4.00-5.60); RDW 14.3 % (11.9-15.9); WHITE BLOOD COUNT 11.6 K/mm3 (4.0-10.0)
[2018-06-25 05:53] LABS: ANION GAP 6 MMOL/L (8-16); BLOOD UREA NITROGEN 10 mg/dL (7-18); CALCIUM 8.3 mg/dL (8.5-10.1); CHLORIDE 109 mmol/L (98-107); CHOLESTEROL 142 mg/dL (50-200); CO2 27 mmol/L (21-32); CREATININE 0.9 mg/dL (0.55-1.3); GLUCOSE,RANDOM 106 mg/dL (74-106); HDL CHOLESTEROL 38 mg/dL (40-60); POTASSIUM 3.8 mmol/L (3.5-5.1); SODIUM 142 mmol/L (136-145); TRIGLYCERIDES 124 mg/dL (0-150)
[2018-06-25] MEDS: SODIUM CHLORIDE 1,000 ML IV SCH (06:57)
[2018-06-25 08:58] LABS: COCAINE, UR NEGATIVE ng/ml (CUTOFF=300); METHADONE, UR NEGATIVE ng/ml (CUTOFF=300); OPIATES, URI NEGATIVE ng/ml (CUTOFF=300); PHENCYCLIDINE,URINE NEGATIVE ng/ml (CUTOFF=25); URINE AMPHETAMINES NEGATIVE ng/ml (CUTOFF=500); URINE BARBITURATES NEGATIVE ng/ml (CUTOFF=200); URINE BENZODIAZEPINES NEGATIVE ng/ml (CUTOFF=200)
--- NOTE | 2018-06-25 09:45 | PN ---
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 Feels more unsteady Vital Signs - 24 hr 06/24/18 06/25/18 06/25/18 17:48 05:56 07:42 Temperature 98.6 F 98.3 F 98.2 F Pulse Rate 76 Pulse Rate [ 74 83 Left Radial] Respiratory 18 17 Rate Blood Pressure 139/71 Blood Pressure 117/67 125/72 [Left Arm] O2 Sat by Pulse 99 95 99 Oximetry (%) 06/25/18 06/25/18 07:43 08:35 Temperature Pulse Rate Pulse Rate [ 78 Left Radial] Respiratory Rate Blood Pressure Blood Pressure 131/76 [Left Arm] O2 Sat by Pulse 99 99 Oximetry (%) Current Medications Generic Name Dose Route Start Last Admin Trade Name Freq PRN Reason Stop Dose Admin Sodium Chloride 1,000 mls @ 42 mls/hr 06/25/18 04:15 06/25/18 06:57 Normal Saline - IV 42 mls/hr ASDIR WILLIAM Administration Famotidine/Sodium Chloride 20 mg in 50 mls @ 100 mls/hr 06/25/18 22:00 Pepcid 20 Mg Premixed Ivpb - IVPB BID WILLIAM Ondansetron HCl 4 mg 06/25/18 04:10 Zofran Injection IVPUSH Q6H PRN NAUSEA Laboratory Results - last 24 hr 06/24/18 06/24/18 06/24/18 18:51 18:51 18:51 WBC 12.1 H RBC 4.94 Hgb 15.1 Hct 44.9 MCV 90.9 MCH 30.6 MCHC 33.7 RDW 14.4 Plt Count 286 D MPV 10.6 D Absolute Neuts (auto) 7.3 Neutrophils % 60.4 Lymphocytes % 30.5 Monocytes % 5.8 Eosinophils % 1.9 Basophils % 1.4 Nucleated RBC % 0 PT with INR INR PTT (Actin FS) D-Dimer Cancelled Sodium Cancelled Potassium Cancelled Chloride Cancelled Carbon Dioxide Cancelled Anion Gap Cancelled BUN Cancelled Creatinine Cancelled Creat Clearance w eGFR Cancelled Random Glucose Cancelled Calcium Cancelled Phosphorus Magnesium Total Bilirubin Cancelled AST Cancelled ALT Cancelled Alkaline Phosphatase Cancelled Creatine Kinase Cancelled Creatine Kinase Index CK-MB (CK-2) Troponin I Cancelled Total Protein Cancelled Albumin Cancelled Triglycerides Cholesterol Total LDL Cholesterol HDL Cholesterol Lipase Urine Color Urine Appearance Urine pH Ur Specific [place] Urine Protein Urine Glucose (UA) Urine Ketones Urine Blood Urine Nitrite Urine Bilirubin Urine Urobilinogen Ur Leukocyte Esterase Opiates Screen Methadone Screen Barbiturate Screen Phencyclidine Screen Ur Amphetamines Screen MDMA (Ecstasy) Screen Benzodiazepines Screen Cocaine Screen U Marijuana (THC) Screen 06/24/18 06/24/18 06/24/18 18:51 18:51 19:31 WBC RBC Hgb Hct MCV MCH MCHC RDW Plt Count MPV Absolute Neuts (auto) Neutrophils % Lymphocytes % Monocytes % Eosinophils % Basophils % Nucleated RBC % PT with INR Cancelled INR Cancelled PTT (Actin FS) Cancelled D-Dimer Sodium Potassium Chloride Carbon Dioxide Anion Gap BUN Creatinine Creat Clearance w eGFR Random Glucose Calcium Phosphorus Cancelled Magnesium Cancelled Total Bilirubin AST ALT Alkaline Phosphatase Creatine Kinase Creatine Kinase Index CK-MB (CK-2) Troponin I Total Protein Albumin Triglycerides Cholesterol Total LDL Cholesterol HDL Cholesterol Lipase Cancelled Urine Color Yellow Urine Appearance Clear Urine pH 6.5 Ur Specific [place] 1.008 L Urine Protein Negative Urine Glucose (UA) Negative Urine Ketones Trace H Urine Blood Negative Urine Nitrite Negative Urine Bilirubin Negative Urine Urobilinogen 0.2 Ur Leukocyte Esterase Negative Opiates Screen Methadone Screen Barbiturate Screen Phencyclidine Screen Ur Amphetamines Screen MDMA (Ecstasy) Screen Benzodiazepines Screen Cocaine Screen U Marijuana (THC) Screen 06/24/18 06/24/18 06/24/18 20:18 20:18 20:18 WBC RBC Hgb Hct MCV MCH MCHC RDW Plt Count MPV Absolute Neuts (auto) Neutrophils % Lymphocytes % Monocytes % Eosinophils % Basophils % Nucleated RBC % PT with INR 13.00 INR 1.10 H PTT (Actin FS) 33.3 D-Dimer < 215 Sodium 143 Potassium 3.9 Chloride 109 H Carbon Dioxide 26 Anion Gap 8 BUN 11 Creatinine 0.9 Creat Clearance w eGFR 91.25 Random Glucose 102 Calcium 8.9 Phosphorus 2.9 Magnesium 2.2 Total Bilirubin 0.5 AST 17 ALT 40 Alkaline Phosphatase 97 Creatine Kinase Creatine Kinase Index CK-MB (CK-2) Troponin I Total Protein 6.6 Albumin 4.0 Triglycerides Cholesterol Total LDL Cholesterol HDL Cholesterol Lipase Urine Color Urine Appearance Urine pH Ur Specific [place] Urine Protein Urine Glucose (UA) Urine Ketones Urine Blood Urine Nitrite Urine Bilirubin Urine Urobilinogen Ur Leukocyte Esterase Opiates Screen Methadone Screen Barbiturate Screen Phencyclidine Screen Ur Amphetamines Screen MDMA (Ecstasy) Screen Benzodiazepines Screen Cocaine Screen U Marijuana (THC) Screen 06/24/18 06/25/18 06/25/18 20:18 05:10 05:10 WBC 11.6 H RBC 4.49 Hgb 13.8 Hct 40.6 MCV 90.5 MCH 30.6 MCHC 33.9 RDW 14.3 Plt Count 240 MPV 9.7 Absolute Neuts (auto) 6.9 Neutrophils % 59.2 Lymphocytes % 30.4 Monocytes % 7.3 Eosinophils % 2.1 Basophils % 1.0 Nucleated RBC % 0 PT with INR INR PTT (Actin FS) D-Dimer Sodium 142 Potassium 3.8 Chloride 109 H Carbon Dioxide 27 Anion Gap 6 L BUN 10 Creatinine 0.9 Creat Clearance w eGFR 91.25 Random Glucose 106 Calcium 8.3 L Phosphorus Magnesium Total Bilirubin AST ALT Alkaline Phosphatase Creatine Kinase 162 Creatine Kinase Index 0.6 CK-MB (CK-2) < 1.0 Troponin I < 0.02 < 0.02 Total Protein Albumin Triglycerides 124 Cholesterol 142 Total LDL Cholesterol 90 HDL Cholesterol 38 L Lipase 192 Urine Color Urine Appearance Urine pH Ur Specific [place] Urine Protein Urine Glucose (UA) Urine Ketones Urine Blood Urine Nitrite Urine Bilirubin Urine Urobilinogen Ur Leukocyte Esterase Opiates Screen Methadone Screen Barbiturate Screen Phencyclidine Screen Ur Amphetamines Screen MDMA (Ecstasy) Screen Benzodiazepines Screen Cocaine Screen U Marijuana (THC) Screen 06/25/18 08:28 WBC RBC Hgb Hct MCV MCH MCHC RDW Plt Count MPV Absolute Neuts (auto) Neutrophils % Lymphocytes % Monocytes % Eosinophils % Basophils % Nucleated RBC % PT with INR INR PTT (Actin FS) D-Dimer Sodium Potassium Chloride Carbon Dioxide Anion Gap BUN Creatinine Creat Clearance w eGFR Random Glucose Calcium Phosphorus Magnesium Total Bilirubin AST ALT Alkaline Phosphatase Creatine Kinase Creatine Kinase Index CK-MB (CK-2) Troponin I Total Protein Albumin Triglycerides Cholesterol Total LDL Cholesterol HDL Cholesterol Lipase Urine Color Urine Appearance Urine pH Ur Specific [place] Urine Protein Urine Glucose (UA) Urine Ketones Urine Blood Urine Nitrite Urine Bilirubin Urine Urobilinogen Ur Leukocyte Esterase Opiates Screen Negative Methadone Screen Negative Barbiturate Screen Negative Phencyclidine Screen Negative Ur Amphetamines Screen Negative MDMA (Ecstasy) Screen Negative Benzodiazepines Screen Negative Cocaine Screen Negative U Marijuana (THC) Screen Negative No pallor S1 S2 RRR Lungs clear Abd- soft, NT no edema A/P ?MS flare R/o cardiac causes as well -- Neurology consult -- Cardiology evaluation-- may need stress test -- cardiac enzymes negative -- Echo -- Carotid doppler -- drug screen negative -- continue with pepcid -- normal CT abd/pelvis -- CT head-- no acute pathology Problem List - Problems (1) Multiple sclerosis Code(s): G35 - MULTIPLE SCLEROSIS (2) Nausea Code(s): R11.0 - NAUSEA (3) Pre-syncope Code(s): R55 - SYNCOPE AND COLLAPSE (4) Chest pain Code(s): R07.9 - CHEST PAIN, UNSPECIFIED
--- NOTE | 2018-06-25 11:49 | EKG ---
Test Reason : Blood Pressure : / mmHG Vent. Rate : 077 BPM Atrial Rate : 077 BPM P-R Int : 154 ms QRS Dur : 072 ms QT Int : 396 ms P-R-T Axes : 069 057 055 degrees QTc Int : 448 ms NORMAL SINUS RHYTHM NORMAL ECG WHEN COMPARED WITH ECG OF 24-JUN-2018 08:36, NO SIGNIFICANT CHANGE WAS FOUND Confirmed by YUE GLEASON MD ([id number]) on 06/25/2018 11:49:21 AM Referred By: Confirmed By:YUE GLEASON MD
[2018-06-25] MEDS ORDERED: methylPREDNISolone NA SUCC 1000 MG/8 ML VIAL ONE (12:30)
[2018-06-25] MEDS: methylPREDNISolone NA SUCC 125 MG/2 ML VIAL IVPB SCH ×2 (12:42→22:10)
--- NOTE | 2018-06-25 13:02 | CONSULT ---
Consult - text type - Consultation Consultation Note: NEUROLOGY CONSULT APPRECIATED: Events reviewed and discussed with staff and and MARCELO Bynum. Pt examined. at bedside. This 47 yo RH male is well-known to me for Multiple Sclerosis since 2001. Last seen by me in office 12/2017. Maintained on Tysabri infusion x 8 years. Last infusion 06/12/18. Last JCV neg ( 01/08). On Baclofen for spastic paraparesis. Reports "mild" exacerbations despite therapy including increasing falls. Recently, patient was unable to travel with his family due to ataxia. Denies dysphagia. +Chronic bladder dysfunction. Ambulates using hill rolling walker. In ER for third time this week with recurrent episodes of "lightheadedness," palpitations, epigastric pressure, "clammy" hands, and "tight" feeling in left jaw. Last MRI for MS was 2015. Head CT (reviewed): Mild atrophy. Mild dilation of ventricles. Periventricular plaques c/w demyelination. Carotid duplex: essentially normal study EKG NSR WBC 12.1-> 11.6 BUN 10/Cr 0.9 TSH 1.93 UA ANDRE: Obese. Cor reg. No bruit. Neg L'Hermitte's. NEURO: Mentation/Speech: Awake, alert, cooperative. Oriented x 3. CNII-CNXII: EOM intact. Few beats of L gaze conjugate nystagmus. Binocular and Monocular souza full. No facial. Gag ok. Motor: No drift. 4-/5 in both hip flexors. Reflexes brisk throughout. Decreased ROBERT's L >R. B/L Babinski's. Coordination: Min, B/L, FTN and HTS dystaxia. Sensation: Reduced vibration in toes and feet L >R. Romberg + Gait: Spastic and scissoring. Unsteady Impression: 1. 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 2. Pre-Syncope. R/O cardiac etiology. Possible contdribution from anxiety/panic attack Suggest: Orthostatic BP's Cardiac evaluation as per Drs. Puente and Leroy. Start Solumedrol 500 mg IVP Q12 H x 5 days Obtain MRI of brain, C spine, thoracic spine (C+/C-) Await UA, C & S Clonazepam 1 mg PO qHS PT for gait training with walker Thank you very much, Chidi Tong MD
--- NOTE | 2018-06-25 16:15 | CON.CARD ---
Consult Consult Specialty:: cardiology Reason for Consultation:: palpitations; near-syncope - History of Present Illness History of Present Illness: 47 y/o white male BIBEMS to [facility] ER complaining of a near syncopal episode with persistent nausea. Pt states he suddenly felt like I was going to pass out while walking to the bathroom after waking from a nap. Reports feeling cold and clamminess in both hands as well as shortness of breath with rapid breathing. The episode lasted approx. 20 minutes in duration before resolving spontaneously. Denies loss of consciousness. [place] nauseous with occasional burping after the incident. Walks with cane or rollator. No change in ability to ambulate. No known sick contacts. This is the pts third visit to this department in the past two days. The previous chief complaints were for 2-3 minutes of palpitations. Pt was evaluated in the emergency department by cardiology this morning after undergoing reportedly normal Echo. Pt has a h/o of MS managed with monthly infusion of Tysabri, last in middle of May. No change in dosage or medication regimen. Followed by Dr. Tong. Last MRI in [facility] dated 12/13/2010. Not sure of the date of last MS flair. Neurologist: Dr. 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 Denies known toxic exposures. - Denies recent travel in past two months. - EtOH: Social, denies any in last 48 hours - Tobacco: Denies - Street Drugs: Denies - No new tattoos or piercings Medical Hx: - Multiple Sclerosis Surgical Hx: - Pt denies past surgical history. - History Source History Provided By: Patient, Family Member, Medical Record Limitations to Obtaining History: No Limitations - Alcohol/Substance Use Hx Alcohol Use: No - Smoking History Smoking history: Never smoked Have you smoked in the past 12 months: No Home Medications - Allergies Allergies/Adverse Reactions: Allergies Allergy/AdvReac Type Severity Reaction Status Date / Time No Known Allergies Allergy Verified 06/23/18 09:36 - Home Medications Home Medications: Ambulatory Orders Baclofen 10 mg PO TID 06/23/18 Natalizumab [Tysabri] 200 mg IV MONTHLY 06/23/18 Family Disease History - Family Disease History Family Disease History: Heart Disease: Grandparent (grandfather at 69 yrs old of ?hear condition) Review of Systems - Review of Systems Constitutional: reports: Weakness Eyes: reports: No Symptoms HENT: reports: No Symptoms Neck: reports: No Symptoms Cardiovascular: reports: Chest Pain, Palpitations Respiratory: reports: SOB on Exertion Gastrointestinal: reports: No Symptoms Genitourinary: reports: No Symptoms Breasts: reports: No Symptoms Reported Musculoskeletal: reports: Muscle Weakness Integumentary: reports: No Symptoms Neurological: reports: Pre-Existing Deficit (mutliple sclerosis), Unsteady Gait , Weakness Endocrine: reports: No Symptoms Hematology/Lymphatic: reports: No Symptoms Psychiatric: reports: Anxiety - Risk Factors Known Risk Factors: Yes: Age, Gender, Physical Inactivity, Other (multiple sclerosis; abnormal gait) Vital Signs: Vital Signs Temperature 98.2 F 06/25/18 07:42 Pulse Rate 78 06/25/18 08:35 Respiratory Rate 17 06/25/18 07:42 Blood Pressure 131/76 06/25/18 08:35 O2 Sat by Pulse Oximetry (%) 99 06/25/18 08:35 Constitutional: Yes: Anxious, Obese Eyes: Yes: WNL HENT: Yes: WNL Neck: Yes: WNL Respiratory: Yes: WNL Gastrointestinal: Yes: WNL Renal/: No: Anuria Cardiovascular: Yes: WNL JVD: No Carotid Bruit: No PMI: Non-Displaced Heart Sounds: Yes: S1, S2 Musculoskeletal: Yes: Muscle Weakness Extremities: Yes: Cool Edema: No Peripheral Pulses WNL: Yes Integumentary: Yes: WNL Neurological: Yes: Alert, Oriented, Weakness Psychiatric: Yes: Alert, Oriented, Other (anxiety) - Other Data Labs, Other Data: CBC, BMP 06/25/18 05:10 06/25/18 05:10 INR, PTT INR 1.10 (0.83-1.09) H 06/24/18 20:18 Troponin, BNP 06/24/18 06/24/18 06/25/18 18:51 20:18 05:10 Troponin I Cancelled < 0.02 < 0.02 Troponin, BNP 06/24/18 06/24/18 06/25/18 18:51 20:18 05:10 Troponin I Cancelled < 0.02 < 0.02 Abnormal Lab Results 06/27/18 06/27/18 05:30 05:30 WBC 20.3 H Absolute Neuts (auto) 18.2 H Neutrophils % 89.9 H D Neutrophils % (Manual) 92.0 H Lymphocytes % 7.8 L D Lymphocytes % (Manual) 6.0 L Monocytes % 2.2 L Monocytes % (Manual) 0 L Chloride 109 H Anion Gap 4 L Random Glucose 138 H Imaging - Results Chest X-ray: Image Reviewed EKG: Image Reviewed Other: Image Reviewed (telemetry: NSR) Problem List - Problems (1) Obesity (BMI 30.0-34.9) Code(s): E66.9 - OBESITY, UNSPECIFIED (2) Multiple sclerosis Code(s): G35 - MULTIPLE SCLEROSIS (3) Nausea Code(s): R11.0 - NAUSEA (4) Pre-syncope Assessment/Plan: orthostatic Vital sign checks. Telemetry (associated palpitations). Maintain hydration. Caroitid artery US unremarkable. ECHO: normal LVEF. For stres Lexican MIBI to r/o CAD. Code(s): R55 - SYNCOPE AND COLLAPSE (5) Palpitation Assessment/Plan: Telemetry monitoring; if unremakable, may require long-term outpatient monitoring. ECHO: normal LVEF; normal chamber sizes. For stress Lexiscan MIBI (pt give remote hx asthma; no events as an adult (last "attack" was at age 15); on no medications for asthma. Code(s): R00.2 - PALPITATIONS
--- NOTE | 2018-06-25 18:04 | HP ---
Admitting History and Physical - Admission Chief Complaint: Palpitations,Chest tightness, Numbness, Near syncopal episode History of Present Illness: 47 yo RH male is well-known to me for Multiple Sclerosis since 2001. Last seen by me in office 12/2017. Maintained on Tysabri infusion x 8 years. Last infusion 06/12/18. Last JCV neg ( 01/08). On Baclofen for spastic paraparesis. Reports "mild" exacerbations despite therapy including increasing falls. Recently, patient was unable to travel with his family due to ataxia. Denies dysphagia. +Chronic bladder dysfunction. Ambulates using hill rolling walker. In ER for third time this week with recurrent episodes of "lightheadedness," palpitations, epigastric pressure, "clammy" hands, and "tight" feeling in left jaw. Last MRI for MS was 2015. 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 Psych: Yes: Anxiety Musculoskeletal: Yes: Chronic low back pain, Other (Gait disorder) - Smoking History Smoking history: Never smoked Have you smoked in the past 12 months: No - Alcohol/Substance Use Hx Alcohol Use: No Home Medications - Allergies Allergies/Adverse Reactions: Allergies Allergy/AdvReac Type Severity Reaction Status Date / Time No Known Allergies Allergy Verified 06/23/18 09:36 - Home Medications Home Medications: Ambulatory Orders Baclofen 10 mg PO TID 06/23/18 Natalizumab [Tysabri] 200 mg IV MONTHLY 06/23/18 Family Disease History - Family Disease History Family Disease History: Heart Disease: Grandparent (grandfather at 69 yrs old of ?hear condition) Review of Systems - Review of Systems Constitutional: reports: Malaise, Weakness Cardiovascular: reports: Other (chest tightness) Musculoskeletal: reports: Joint Pain Neurological: reports: Incoordination, Numbness, Parasthesia, Unsteady Gait, Weakness Psychiatric: reports: Anxiety Physical Examination Vital Signs: Vital Signs Temperature 98.2 F 06/25/18 07:42 Pulse Rate 89 06/25/18 17:12 Respiratory Rate 17 06/25/18 17:12 Blood Pressure 139/71 06/25/18 17:12 O2 Sat by Pulse Oximetry (%) 98 06/25/18 17:12 Constitutional: Yes: Anxious Eyes: Yes: Conjunctiva Clear, EOM Intact, Other (H/o Optic Neuritis) HENT: Yes: Normocephalic Neck: Yes: Supple, Trachea Midline Cardiovascular: Yes: Regular Rate and Rhythm, S1, S2 Respiratory: Yes: Regular, CTA Bilaterally Gastrointestinal: Yes: Normal Bowel Sounds, Soft Musculoskeletal: Yes: Joint Stiffness Labs: CBC, BMP 06/25/18 05:10 06/25/18 05:10 Problem List - Problems (1) Multiple sclerosis Code(s): G35 - MULTIPLE SCLEROSIS (2) Pre-syncope Code(s): R55 - SYNCOPE AND COLLAPSE (3) Palpitation Code(s): R00.2 - PALPITATIONS (4) Obesity (BMI 30.0-34.9) Code(s): E66.9 - OBESITY, UNSPECIFIED (5) Optic neuritis Code(s): H46.9 - UNSPECIFIED OPTIC NEURITIS (6) Paresthesia of both feet Code(s): R20.2 - PARESTHESIA OF SKIN (7) Chest pain Code(s): R07.9 - CHEST PAIN, UNSPECIFIED Assessment/Plan (1) Multiple sclerosis Code(s): G35 - MULTIPLE SCLEROSIS (2) Pre-syncope Code(s): R55 - SYNCOPE AND COLLAPSE (3) Palpitation Code(s): R00.2 - PALPITATIONS (4) Obesity (BMI 30.0-34.9) Code(s): E66.9 - OBESITY, UNSPECIFIED (5) Optic neuritis Code(s): H46.9 - UNSPECIFIED OPTIC NEURITIS (6) Paresthesia of both feet Code(s): R20.2 - PARESTHESIA OF SKIN (7) Chest pain Code(s): R07.9 - CHEST PAIN, UNSPECIFIED spoke with Cardiology: Nclear stress test/Laxi scan in AM Spoke with Neurology: MRI family mother/ discussed also about the case IV Hydration Pt is having anxiety
[2018-06-25 20:43] VITALS: BMI 32.3
[2018-06-25] MEDS: FAMOTIDINE 20 MG/50 ML IVPB 20 MG/50 ML MG IVPB SCH (21:15)
[2018-06-25] MEDS: clonazePAM 0.5 MG TABLET PO SCH (23:29)
--- NOTE | 2018-06-26 02:58 | FALL ---
Fall Exam - Event Witnessed fall: No Location of Fall: Patient Room Fall from: standing at bedside voiding - Pre-Fall Mental Status: Alert Current Medications: Current Medications Generic Name Dose Route Start Last Admin Trade Name Trey PRN Reason Stop Dose Admin Clonazepam 1 mg 06/25/18 23:15 06/25/18 23:29 Klonopin - PO 1 mg HS WILLIAM Administration Sodium Chloride 1,000 mls @ 42 mls/hr 06/25/18 04:15 06/25/18 06:57 Normal Saline - IV 42 mls/hr ASDIR WILLIAM Administration Famotidine/Sodium Chloride 20 mg in 50 mls @ 100 mls/hr 06/25/18 22:00 21:15 Pepcid 20 Mg Premixed Ivpb - IVPB 100 mls/hr BID WILLIAM Administration Methylprednisolone Sodium Succinate 500 mg 06/25/18 13:00 06/25/18 22:10 Solu-Medrol - IVPB 06/30/18 12:59 500 mg BID WILLIAM Administration Ondansetron HCl 4 mg 06/25/18 04:10 Zofran Injection IVPUSH Q6H PRN NAUSEA - Post-Fall Patient Outcome: Pain Only (coccyx) Exam Findings: AAOx3, Head: Atraumatic Normocephalic, non tender. Heart: RRR, S1 , S2. Lungs: CTAB, Abdomen: Obese, Soft, Non-tender BS, Musculoskeletal- Coccyx TTP, No Joint TN/swelling. Extremities- FROM of all extremites. +pedal pulses. Integumentary: +erythema to inner aspect of buttocks. Treatment: Analgesia, Ice Pack Vital Signs: Vital Signs Temperature 97.2 F L 06/25/18 19:30 Pulse Rate 85 06/25/18 21:45 Respiratory Rate 20 06/25/18 21:45 Blood Pressure 120/71 06/25/18 21:45 O2 Sat by Pulse Oximetry (%) 98 06/25/18 19:30 LOC Post-Fall: Unchanged Identify factors for HIGH RISK for Head Injury: None of the above
[2018-06-26] MEDS ORDERED: ACETAMINOPHEN 325 MG TABLET (FP) PO PRN (03:35)
[2018-06-26 07:59] LABS: BLOOD UREA NITROGEN 9 mg/dL (7-18); CALCIUM 9.1 mg/dL (8.5-10.1); CHLORIDE 110 mmol/L (98-107); CO2 27 mmol/L (21-32); CREATININE 0.8 mg/dL (0.55-1.3); GLUCOSE,RANDOM 136 mg/dL (74-106); POTASSIUM 3.9 mmol/L (3.5-5.1); SODIUM 144 mmol/L (136-145)
[2018-06-26 08:10] LABS: ANION GAP 8 MMOL/L (8-16)
[2018-06-26] MEDS ORDERED: REGADENOSON 0.4 MG/5 ML PRE-FILLED SYRINGE IVPUSH ONE ×2 (09:30→09:32)
--- NOTE | 2018-06-26 11:59 | PN ---
Progress Note, Physician History of Present Illness: 47 y/o white male BIBEMS to [facility] ER complaining of a near syncopal episode with persistent nausea. Pt states he suddenly felt like I was going to pass out while walking to the bathroom after waking from a nap. Reports feeling cold and clamminess in both hands as well as shortness of breath with rapid breathing. The episode lasted approx. 20 minutes in duration before resolving spontaneously. Denies loss of consciousness. [place] nauseous with occasional burping after the incident. Walks with cane or rollator. No change in ability to ambulate. No known sick contacts. This is the pts third visit to this department in the past two days. The previous chief complaints were for 2-3 minutes of palpitations. Pt was evaluated in the emergency department by cardiology this morning after undergoing reportedly normal Echo. Pt has a h/o of MS managed with monthly infusion of Tysabri, last in middle of May. No change in dosage or medication regimen. Followed by Dr. Tong. Last MRI in [facility] dated 12/13/2010. Not sure of the date of last MS flair. Neurologist: Dr. 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 Denies known toxic exposures. - Denies recent travel in past two months. - EtOH: Social, denies any in last 48 hours - Tobacco: Denies - Street Drugs: Denies - No new tattoos or piercings Medical Hx: - Multiple Sclerosis Surgical Hx: - Pt denies past surgical history. - Current Medication List Current Medications: Active Medications Acetaminophen (Tylenol -) 650 mg PO Q6H PRN PRN Reason: PAIN LEVEL 7 - 10 Clonazepam (Klonopin -) 1 mg PO HS [facility] Last Admin: 06/25/18 23:29 Dose: 1 mg Sodium Chloride (Normal Saline -) 1,000 mls @ 42 mls/hr IV ASDIR [facility] Last Admin: 06/25/18 06:57 Dose: 42 mls/hr Famotidine/Sodium Chloride (Pepcid 20 Mg Premixed Ivpb -) 20 mg in 50 mls @ 100 mls/hr IVPB BID [facility] Last Admin: 06/25/18 21:15 Dose: 100 mls/hr Methylprednisolone Sodium Succinate (Solu-Medrol -) 500 mg IVPB BID [facility] Stop: 06/30/18 12:59 Last Admin: 06/25/18 22:10 Dose: 500 mg Ondansetron HCl (Zofran Injection) 4 mg IVPUSH Q6H PRN PRN Reason: NAUSEA - Objective Vital Signs: Vital Signs Temperature 98.0 F 06/26/18 07:41 Pulse Rate 104 H 06/26/18 07:41 Respiratory Rate 20 06/26/18 09:41 Blood Pressure 130/83 06/26/18 07:41 O2 Sat by Pulse Oximetry (%) 98 06/26/18 09:00 Eyes: Yes: WNL, Conjunctiva Clear, EOM Intact HENT: Yes: WNL, Atraumatic, Normocephalic Neck: Yes: WNL, Supple, Trachea Midline Cardiovascular: Yes: WNL, Regular Rate and Rhythm Respiratory: Yes: WNL, Regular, CTA Bilaterally Gastrointestinal: Yes: WNL, Normal Bowel Sounds Genitourinary: Yes: WNL Musculoskeletal: Yes: WNL Extremities: Yes: WNL Edema: No Integumentary: Yes: WNL Neurological: Yes: WNL, Alert, Oriented ...Motor Strength: WNL Psychiatric: Yes: WNL Labs: CBC, BMP 06/25/18 05:10 06/26/18 06:38 INR, PTT INR 1.10 (0.83-1.09) H 06/24/18 20:18 Assessment/Plan - Problems (1) Obesity (BMI 30.0-34.9) Code(s): E66.9 - OBESITY, UNSPECIFIED (2) Multiple sclerosis Code(s): G35 - MULTIPLE SCLEROSIS (3) Nausea Code(s): R11.0 - NAUSEA (4) Pre-syncope Assessment/Plan: orthostatic Vital sign checks. Telemetry (associated palpitations). Maintain hydration. Caroitid artery US unremarkable. ECHO: normal LVEF. stres Lexican MIBI no ischemia. Code(s): R55 - SYNCOPE AND COLLAPSE (5) Palpitation Assessment/Plan: Telemetry monitoring; if unremakable, may require long-term outpatient monitoring. ECHO: normal LVEF; normal chamber sizes. d/c telemetry cardiac loyd can be follow pratima outpatient.
[2018-06-26] MEDS: SODIUM CHLORIDE 1,000 ML IV SCH (12:51)
[2018-06-26] MEDS: methylPREDNISolone NA SUCC 125 MG/2 ML VIAL IVPB SCH ×2 (12:51→22:36)
[2018-06-26] MEDS: FAMOTIDINE 20 MG/50 ML IVPB 20 MG/50 ML MG IVPB SCH ×2 (12:51→21:57)
--- NOTE | 2018-06-26 21:15 | PN ---
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 - Current Medication List Current Medications: Active Medications Acetaminophen (Tylenol -) 650 mg PO Q6H PRN PRN Reason: PAIN LEVEL 7 - 10 Clonazepam (Klonopin -) 1 mg PO HS [facility] Last Admin: 06/25/18 23:29 Dose: 1 mg Sodium Chloride (Normal Saline -) 1,000 mls @ 42 mls/hr IV ASDIR [facility] Last Admin: 06/26/18 12:51 Dose: 42 mls/hr Famotidine/Sodium Chloride (Pepcid 20 Mg Premixed Ivpb -) 20 mg in 50 mls @ 100 mls/hr IVPB BID [facility] Last Admin: 06/26/18 12:51 Dose: 100 mls/hr Methylprednisolone Sodium Succinate (Solu-Medrol -) 500 mg IVPB BID [facility] Stop: 06/30/18 12:59 Last Admin: 06/26/18 12:51 Dose: 500 mg Ondansetron HCl (Zofran Injection) 4 mg IVPUSH Q6H PRN PRN Reason: NAUSEA - Objective Vital Signs: Vital Signs Temperature 98 F 06/26/18 20:46 Pulse Rate 86 06/26/18 20:46 Respiratory Rate 18 06/26/18 20:46 Blood Pressure 116/64 06/26/18 20:46 O2 Sat by Pulse Oximetry (%) 100 06/26/18 17:00 Constitutional: Yes: No Distress, Anxious Eyes: Yes: Conjunctiva Clear, EOM Intact HENT: Yes: Atraumatic, Normocephalic Neck: Yes: Supple, Trachea Midline Cardiovascular: Yes: Regular Rate and Rhythm, S1, S2 Respiratory: Yes: Regular, CTA Bilaterally Gastrointestinal: Yes: Normal Bowel Sounds, Soft Musculoskeletal: Yes: Joint Stiffness, Muscle Weakness Edema: No Neurological: Yes: Alert, Oriented, Cran Nerves II-XII Intact, Tingling, Unsteady Gait Labs: CBC, BMP 06/25/18 05:10 06/26/18 06:38 INR, PTT INR 1.10 (0.83-1.09) H 06/24/18 20:18 Problem List - Problems (1) Multiple sclerosis Code(s): G35 - MULTIPLE SCLEROSIS (2) Pre-syncope Code(s): R55 - SYNCOPE AND COLLAPSE (3) Palpitation Code(s): R00.2 - PALPITATIONS (4) Obesity (BMI 30.0-34.9) Code(s): E66.9 - OBESITY, UNSPECIFIED (5) Optic neuritis Code(s): H46.9 - UNSPECIFIED OPTIC NEURITIS (6) Paresthesia of both feet Code(s): R20.2 - PARESTHESIA OF SKIN (7) Chest pain Code(s): R07.9 - CHEST PAIN, UNSPECIFIED Assessment/Plan (1) Multiple sclerosis Code(s): G35 - MULTIPLE SCLEROSIS (2) Pre-syncope Code(s): R55 - SYNCOPE AND COLLAPSE (3) Palpitation Code(s): R00.2 - PALPITATIONS (4) Obesity (BMI 30.0-34.9) Code(s): E66.9 - OBESITY, UNSPECIFIED (5) Optic neuritis Code(s): H46.9 - UNSPECIFIED OPTIC NEURITIS (6) Paresthesia of both feet Code(s): R20.2 - PARESTHESIA OF SKIN (7) Chest pain Code(s): R07.9 - CHEST PAIN, UNSPECIFIED spoke with Cardiology: Laxi scan done and WNL Pt will Have MRI IV Hydration Pt is having anxiety
[2018-06-26] MEDS: clonazePAM 0.5 MG TABLET PO SCH (21:57)
[2018-06-26] MEDS: BACLOFEN 10 MG TABLET (FP) PO SCH (21:59)
[2018-06-27] MEDS: BACLOFEN 10 MG TABLET (FP) PO SCH ×3 (06:19→22:13)
[2018-06-27 07:25] LABS: BASO % 0.1 % (0-2.0); HEMATOCRIT 39.2 % (35.4-49); HEMOGLOBIN 13.2 GM/dL (11.7-16.9); LYMPH % 7.8 % (8-40); MCH 30.4 pg (25.7-33.7); MCHC 33.5 g/dl (32.0-35.9); MEAN CELL VOLUME 90.5 fl (80-96); MEAN PLT VOLUME 10.3 fl (7.5-11.1); MONO % 2.2 % (3.8-10.2); NEUT % 89.9 % (42.8-82.8); PLATELET COUNT 264 K/MM3 (134-434); RBC 4.34 M/mm3 (4.00-5.60); RDW 14.2 % (11.9-15.9); WHITE BLOOD COUNT 20.3 K/mm3 (4.0-10.0)
[2018-06-27 07:34] LABS: ANION GAP 4 MMOL/L (8-16); BLOOD UREA NITROGEN 14 mg/dL (7-18); CALCIUM 8.9 mg/dL (8.5-10.1); CHLORIDE 109 mmol/L (98-107); CO2 27 mmol/L (21-32); GLUCOSE,RANDOM 138 mg/dL (74-106); POTASSIUM 3.9 mmol/L (3.5-5.1); SODIUM 141 mmol/L (136-145)
[2018-06-27] MEDS ORDERED: PT OWN MED DRAWER 7, Y5N ONE (08:23)
[2018-06-27] MEDS: SODIUM CHLORIDE 1,000 ML IV SCH (09:36)
[2018-06-27] MEDS: FAMOTIDINE 20 MG/50 ML IVPB 20 MG/50 ML MG IVPB SCH ×2 (09:36→22:13)
[2018-06-27] MEDS: methylPREDNISolone NA SUCC 125 MG/2 ML VIAL IVPB SCH ×2 (09:36→22:13)
[2018-06-27 11:15] LABS: ANISOCYTOSIS 0; HELMET CELLS 0; HOWELL-JOLLY BODIES 0; MACROCYTOSIS 0; OVALOCYTE 0; PLATELET ESTIMATE NORMAL; ROULEAU 0; SICKELED CELLS 0; TARGET CELLS 0; TEAR DROP CELLS 0; TOXIC GRANULATION 0
--- NOTE | 2018-06-27 16:44 | PN ---
Progress Note, Physician Chief Complaint: Pt A&Ox3; asymptomatic; returned from JRI of the brain. History of Present Illness: 47 y/o white male BIBEMS to [facility] ER complaining of a near syncopal episode with persistent nausea. Pt states he suddenly felt like I was going to pass out while walking to the bathroom after waking from a nap. Reports feeling cold and clamminess in both hands as well as shortness of breath with rapid breathing. The episode lasted approx. 20 minutes in duration before resolving spontaneously. Denies loss of consciousness. [place] nauseous with occasional burping after the incident. Walks with cane or rollator. No change in ability to ambulate. No known sick contacts. This is the pts third visit to this department in the past two days. The previous chief complaints were for 2-3 minutes of palpitations. Pt was evaluated in the emergency department by cardiology this morning after undergoing reportedly normal Echo. Pt has a h/o of MS managed with monthly infusion of Tysabri, last in middle of May. No change in dosage or medication regimen. Followed by Dr. Tong. Last MRI in [facility] dated 12/13/2010. Not sure of the date of last MS flair. Neurologist: Dr. 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 - Denies recent travel in past two months. - EtOH: Social, denies any in last 48 hours - Tobacco: Denies - Street Drugs: Denies - No new tattoos or piercings Medical Hx: - Multiple Sclerosis Surgical Hx: - Pt denies past surgical history. - Current Medication List Current Medications: Active Medications Acetaminophen (Tylenol -) 650 mg PO Q6H PRN PRN Reason: PAIN LEVEL 7 - 10 Baclofen (Lioresal -) 20 mg PO TID [facility] Last Admin: 06/27/18 13:52 Dose: 20 mg Clonazepam (Klonopin -) 1 mg PO HS [facility] Last Admin: 06/26/18 21:57 Dose: 1 mg Sodium Chloride (Normal Saline -) 1,000 mls @ 42 mls/hr IV ASDIR [facility] Last Admin: 06/27/18 09:36 Dose: 42 mls/hr Famotidine/Sodium Chloride (Pepcid 20 Mg Premixed Ivpb -) 20 mg in 50 mls @ 100 mls/hr IVPB BID [facility] Last Admin: 06/27/18 09:36 Dose: 100 mls/hr Methylprednisolone Sodium Succinate (Solu-Medrol -) 500 mg IVPB BID [facility] Stop: 06/30/18 12:59 Last Admin: 06/27/18 09:36 Dose: 500 mg Ondansetron HCl (Zofran Injection) 4 mg IVPUSH Q6H PRN PRN Reason: NAUSEA - Objective Vital Signs: Vital Signs Temperature 98.2 F 06/27/18 14:33 Pulse Rate 71 06/27/18 14:33 Respiratory Rate 20 06/27/18 14:33 Blood Pressure 124/55 L 06/27/18 14:33 O2 Sat by Pulse Oximetry (%) 98 06/27/18 08:59 Constitutional: Yes: Anxious Labs: CBC, BMP 06/27/18 05:30 06/27/18 05:30 INR, PTT INR 1.10 (0.83-1.09) H 06/24/18 20:18 Problem List - Problems (1) Obesity (BMI 30.0-34.9) Code(s): E66.9 - OBESITY, UNSPECIFIED (2) Multiple sclerosis Code(s): G35 - MULTIPLE SCLEROSIS (3) Nausea Code(s): R11.0 - NAUSEA (4) Pre-syncope Assessment/Plan: orthostatic Vital sign checks. Telemetry (associated palpitations). Maintain hydration. Caroitid artery US unremarkable. ECHO: normal LVEF. Stress Lexiscan MIBI 06/26/2018: no myocardial ischemia. Code(s): R55 - SYNCOPE AND COLLAPSE (5) Palpitation Assessment/Plan: Telemetry monitoring; if unremakable, may require long-term outpatient monitoring. ECHO: normal lVEF. Stress Lexiscan MIBI 06/26/2018: no myocardial ischemia.Pt's HR was >160 bpm within the 1st minute of Lexicsan infusion (sinus tachycardia0; he was asymptomatic throughout the procedure. Code(s): R00.2 - PALPITATIONS (6) Panic anxiety syndrome Assessment/Plan: Pt says he knows the cause of his panic attacks:"I'm a Type A personality, and have to be in total control of every situation". Would benefit from psychological counseling, desensitization/biofeedback techniques. Code(s): F41.0 - PANIC DISORDER [EPISODIC PAROXYSMAL ANXIETY]
--- NOTE | 2018-06-27 17:26 | PN ---
Progress Note, Physician Chief Complaint: Pt is feeling better No Fever No Falls - Current Medication List Current Medications: Active Medications Acetaminophen (Tylenol -) 650 mg PO Q6H PRN PRN Reason: PAIN LEVEL 7 - 10 Baclofen (Lioresal -) 20 mg PO TID [facility] Last Admin: 06/27/18 13:52 Dose: 20 mg Clonazepam (Klonopin -) 1 mg PO HS [facility] Last Admin: 06/26/18 21:57 Dose: 1 mg Sodium Chloride (Normal Saline -) 1,000 mls @ 42 mls/hr IV ASDIR [facility] Last Admin: 06/27/18 09:36 Dose: 42 mls/hr Famotidine/Sodium Chloride (Pepcid 20 Mg Premixed Ivpb -) 20 mg in 50 mls @ 100 mls/hr IVPB BID [facility] Last Admin: 06/27/18 09:36 Dose: 100 mls/hr Methylprednisolone Sodium Succinate (Solu-Medrol -) 500 mg IVPB BID [facility] Stop: 06/30/18 12:59 Last Admin: 06/27/18 09:36 Dose: 500 mg Ondansetron HCl (Zofran Injection) 4 mg IVPUSH Q6H PRN PRN Reason: NAUSEA - Objective Vital Signs: Vital Signs Temperature 98.2 F 06/27/18 14:33 Pulse Rate 71 06/27/18 14:33 Respiratory Rate 20 06/27/18 14:33 Blood Pressure 124/55 L 06/27/18 14:33 O2 Sat by Pulse Oximetry (%) 98 06/27/18 08:59 Constitutional: Yes: No Distress, Calm, Anxious Eyes: Yes: Conjunctiva Clear, EOM Intact HENT: Yes: Atraumatic, Normocephalic Neck: Yes: Supple, Trachea Midline Cardiovascular: Yes: Regular Rate and Rhythm Respiratory: Yes: Regular, CTA Bilaterally Gastrointestinal: Yes: Normal Bowel Sounds, Soft Musculoskeletal: Yes: Joint Stiffness, Muscle Weakness Edema: No Labs: CBC, BMP 06/27/18 05:30 06/27/18 05:30 INR, PTT INR 1.10 (0.83-1.09) H 06/24/18 20:18 Problem List - Problems (1) Multiple sclerosis Code(s): G35 - MULTIPLE SCLEROSIS (2) Pre-syncope Code(s): R55 - SYNCOPE AND COLLAPSE (3) Palpitation Code(s): R00.2 - PALPITATIONS (4) Obesity (BMI 30.0-34.9) Code(s): E66.9 - OBESITY, UNSPECIFIED (5) Optic neuritis Code(s): H46.9 - UNSPECIFIED OPTIC NEURITIS (6) Paresthesia of both feet Code(s): R20.2 - PARESTHESIA OF SKIN (7) Chest pain Code(s): R07.9 - CHEST PAIN, UNSPECIFIED Assessment/Plan (1) Multiple sclerosis Code(s): G35 - MULTIPLE SCLEROSIS (2) Pre-syncope Code(s): R55 - SYNCOPE AND COLLAPSE (3) Palpitation Code(s): R00.2 - PALPITATIONS (4) Obesity (BMI 30.0-34.9) Code(s): E66.9 - OBESITY, UNSPECIFIED (5) Optic neuritis Code(s): H46.9 - UNSPECIFIED OPTIC NEURITIS (6) Paresthesia of both feet Code(s): R20.2 - PARESTHESIA OF SKIN (7) Chest pain Code(s): R07.9 - CHEST PAIN, UNSPECIFIED spoke with Cardiology: Laxi scan done and WNL Pt will Have MRI Brain/ Cervical/Thoracic (C+/C-) IV Hydration Pt is having anxiety
[2018-06-27] MEDS: clonazePAM 0.5 MG TABLET PO SCH (22:13)
[2018-06-28] MEDS: BACLOFEN 10 MG TABLET (FP) PO SCH ×3 (05:39→22:08)
[2018-06-28 07:07] LABS: ANION GAP 6 MMOL/L (8-16); BLOOD UREA NITROGEN 16 mg/dL (7-18); CALCIUM 8.3 mg/dL (8.5-10.1); CHLORIDE 109 mmol/L (98-107); CO2 26 mmol/L (21-32); CREATININE 0.8 mg/dL (0.55-1.3); GLUCOSE,RANDOM 137 mg/dL (74-106); POTASSIUM 4.1 mmol/L (3.5-5.1); SODIUM 141 mmol/L (136-145)
[2018-06-28] MEDS ORDERED: FUROSEMIDE 40 MG/4 ML INJECTABLE VIAL IVPUSH ONE (09:45)
[2018-06-28] MEDS: methylPREDNISolone NA SUCC 125 MG/2 ML VIAL IVPB SCH ×2 (10:20→22:11)
[2018-06-28] MEDS: FAMOTIDINE 20 MG/50 ML IVPB 20 MG/50 ML MG IVPB SCH ×2 (10:20→22:09)
--- NOTE | 2018-06-28 19:00 | PN ---
Progress Note, Physician Chief Complaint: Pt had MRI of Brain and C spine Pt is having no falls - Current Medication List Current Medications: Active Medications Acetaminophen (Tylenol -) 650 mg PO Q6H PRN PRN Reason: PAIN LEVEL 7 - 10 Baclofen (Lioresal -) 20 mg PO TID [facility] Last Admin: 06/28/18 15:20 Dose: 20 mg Clonazepam (Klonopin -) 1 mg PO HS [facility] Last Admin: 06/27/18 22:13 Dose: 1 mg Sodium Chloride (Normal Saline -) 1,000 mls @ 42 mls/hr IV ASDIR [facility] Last Admin: 06/27/18 09:36 Dose: 42 mls/hr Famotidine/Sodium Chloride (Pepcid 20 Mg Premixed Ivpb -) 20 mg in 50 mls @ 100 mls/hr IVPB BID [facility] Last Admin: 06/28/18 10:20 Dose: 100 mls/hr Methylprednisolone Sodium Succinate (Solu-Medrol -) 500 mg IVPB BID [facility] Stop: 06/30/18 12:59 Last Admin: 06/28/18 10:20 Dose: 500 mg Ondansetron HCl (Zofran Injection) 4 mg IVPUSH Q6H PRN PRN Reason: NAUSEA - Objective Vital Signs: Vital Signs Temperature 98.5 F 06/28/18 14:00 Pulse Rate 60 06/28/18 14:00 Respiratory Rate 20 06/28/18 14:00 Blood Pressure 95/47 L 06/28/18 14:00 O2 Sat by Pulse Oximetry (%) 98 06/28/18 09:00 Constitutional: Yes: Anxious Eyes: Yes: Conjunctiva Clear, EOM Intact HENT: Yes: Atraumatic, Normocephalic Neck: Yes: Supple, Trachea Midline Cardiovascular: Yes: Regular Rate and Rhythm, S1, S2 Respiratory: Yes: Regular, CTA Bilaterally Gastrointestinal: Yes: Normal Bowel Sounds, Soft Musculoskeletal: Yes: Joint Stiffness, Muscle Weakness Edema: No Peripheral Pulses WNL: Yes Labs: CBC, BMP 06/27/18 05:30 06/28/18 05:30 INR, PTT INR 1.10 (0.83-1.09) H 06/24/18 20:18 Problem List - Problems (1) Multiple sclerosis Code(s): G35 - MULTIPLE SCLEROSIS (2) Pre-syncope Code(s): R55 - SYNCOPE AND COLLAPSE (3) Palpitation Code(s): R00.2 - PALPITATIONS (4) Obesity (BMI 30.0-34.9) Code(s): E66.9 - OBESITY, UNSPECIFIED (5) Optic neuritis Code(s): H46.9 - UNSPECIFIED OPTIC NEURITIS (6) Paresthesia of both feet Code(s): R20.2 - PARESTHESIA OF SKIN (7) Chest pain Code(s): R07.9 - CHEST PAIN, UNSPECIFIED Assessment/Plan (1) Multiple sclerosis Code(s): G35 - MULTIPLE SCLEROSIS (2) Pre-syncope Code(s): R55 - SYNCOPE AND COLLAPSE (3) Palpitation Code(s): R00.2 - PALPITATIONS (4) Obesity (BMI 30.0-34.9) Code(s): E66.9 - OBESITY, UNSPECIFIED (5) Optic neuritis Code(s): H46.9 - UNSPECIFIED OPTIC NEURITIS (6) Paresthesia of both feet Code(s): R20.2 - PARESTHESIA OF SKIN (7) Chest pain Code(s): R07.9 - CHEST PAIN, UNSPECIFIED spoke with Cardiology: Laxi scan done and WNL Pt had MRI Brain/ Cervical/ Suggestive of Demelenation Pt is off IV fluids
[2018-06-28] MEDS: clonazePAM 0.5 MG TABLET PO SCH (22:08)
[2018-06-29] MEDS: BACLOFEN 10 MG TABLET (FP) PO SCH ×3 (06:13→22:06)
[2018-06-29 06:40] LABS: BASO % 0.1 % (0-2.0); EOS % 0.1 % (0-4.5); HEMATOCRIT 39.7 % (35.4-49); HEMOGLOBIN 13.4 GM/dL (11.7-16.9); LYMPH % 10.1 % (8-40); MCH 30.5 pg (25.7-33.7); MCHC 33.7 g/dl (32.0-35.9); MEAN CELL VOLUME 90.6 fl (80-96); MEAN PLT VOLUME 10.1 fl (7.5-11.1); MONO % 2.4 % (3.8-10.2); NEUT % 87.3 % (42.8-82.8); PLATELET COUNT 236 K/MM3 (134-434); RBC 4.39 M/mm3 (4.00-5.60); RDW 14.3 % (11.9-15.9); WHITE BLOOD COUNT 14.7 K/mm3 (4.0-10.0)
[2018-06-29 07:17] LABS: ANION GAP 6 MMOL/L (8-16); BLOOD UREA NITROGEN 17 mg/dL (7-18); CALCIUM 8.3 mg/dL (8.5-10.1); CHLORIDE 106 mmol/L (98-107); CO2 30 mmol/L (21-32); CREATININE 0.9 mg/dL (0.55-1.3); GLUCOSE,RANDOM 146 mg/dL (74-106); SODIUM 141 mmol/L (136-145)
--- NOTE | 2018-06-29 10:08 | PN ---
Progress Note, Physician History of Present Illness: 47 y/o white male BIBEMS to [facility] complaining of a near syncopal episode with persistent nausea. Pt states he suddenly felt like I was going to pass out while walking to the bathroom after waking from a nap. Reports feeling cold and clamminess in both hands as well as shortness of breath with rapid breathing. The episode lasted approx. 20 minutes in duration before resolving spontaneously. Denies loss of consciousness. [place] nauseous with occasional burping after the incident. Walks with cane or rollator. No change in ability to ambulate. No known sick contacts. This is the pts third visit to this department in the past two days. The previous chief complaints were for 2-3 minutes of palpitations. Pt was evaluated in the emergency department by cardiology this morning after undergoing reportedly normal Echo. Pt has a h/o of MS managed with monthly infusion of Tysabri, last in middle of May. No change in dosage or medication regimen. Followed by Dr. Tong. Last MRI in [facility] dated 12/13/2010. Not sure of the date of last MS flair. Neurologist: Dr. 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 Denies known toxic exposures. - Denies recent travel in past two months. - EtOH: Social, denies any in last 48 hours - Tobacco: Denies - Street Drugs: Denies - No new tattoos or piercings Medical Hx: - Multiple Sclerosis Surgical Hx: - Pt denies past surgical history. - Current Medication List Current Medications: Active Medications Acetaminophen (Tylenol -) 650 mg PO Q6H PRN PRN Reason: PAIN LEVEL 7 - 10 Baclofen (Lioresal -) 20 mg PO TID [facility] Last Admin: 06/29/18 06:13 Dose: 20 mg Clonazepam (Klonopin -) 1 mg PO HS [facility] Last Admin: 06/28/18 22:08 Dose: 1 mg Sodium Chloride (Normal Saline -) 1,000 mls @ 42 mls/hr IV ASDIR [facility] Last Admin: 06/27/18 09:36 Dose: 42 mls/hr Famotidine/Sodium Chloride (Pepcid 20 Mg Premixed Ivpb -) 20 mg in 50 mls @ 100 mls/hr IVPB BID [facility] Last Admin: 06/28/18 22:09 Dose: 100 mls/hr Methylprednisolone Sodium Succinate (Solu-Medrol -) 500 mg IVPB BID [facility] Stop: 06/30/18 12:59 Last Admin: 06/28/18 22:11 Dose: 500 mg Ondansetron HCl (Zofran Injection) 4 mg IVPUSH Q6H PRN PRN Reason: NAUSEA - Objective Vital Signs: Vital Signs Temperature 98 F 06/29/18 10:00 Pulse Rate 58 L 06/29/18 10:00 Respiratory Rate 20 06/29/18 10:00 Blood Pressure 130/60 06/29/18 10:00 O2 Sat by Pulse Oximetry (%) 97 06/28/18 21:00 Eyes: Yes: WNL, Conjunctiva Clear, EOM Intact HENT: Yes: WNL, Atraumatic, Normocephalic Neck: Yes: WNL, Supple, Trachea Midline Cardiovascular: Yes: WNL, Regular Rate and Rhythm Respiratory: Yes: WNL, Regular, CTA Bilaterally Gastrointestinal: Yes: WNL, Normal Bowel Sounds Genitourinary: Yes: WNL Musculoskeletal: Yes: WNL Extremities: Yes: WNL Edema: No Integumentary: Yes: WNL ...Motor Strength: WNL Psychiatric: Yes: WNL Labs: CBC, BMP 06/29/18 05:30 06/29/18 05:30 INR, PTT INR 1.10 (0.83-1.09) H 06/24/18 20:18 Assessment/Plan - Problems (1) Obesity (BMI 30.0-34.9) Code(s): E66.9 - OBESITY, UNSPECIFIED (2) Multiple sclerosis Code(s): G35 - MULTIPLE SCLEROSIS (3) Nausea Code(s): R11.0 - NAUSEA (4) Pre-syncope Assessment/Plan: orthostatic Vital sign checks. Telemetry (associated palpitations). Maintain hydration. Caroitid artery US unremarkable. ECHO: normal LVEF. Stress Lexiscan MIBI 06/26/2018: no myocardial ischemia. Code(s): R55 - SYNCOPE AND COLLAPSE (5) Palpitation Assessment/Plan: Telemetry monitoring; if unremakable, may require long-term outpatient monitoring. ECHO: normal lVEF. Stress Lexiscan MIBI 06/26/2018: no myocardial ischemia.Pt's HR was >160 bpm within the 1st minute of Lexicsan infusion (sinus tachycardia0; he was asymptomatic throughout the procedure. Code(s): R00.2 - PALPITATIONS (6) Panic anxiety syndrome Assessment/Plan: Pt says he knows the cause of his panic attacks:"I'm a Type A personality, and have to be in total control of every situation". Would benefit from psychological counseling, desensitization/biofeedback techniques. Code(s): F41.0 - PANIC DISORDER [EPISODIC PAROXYSMAL ANXIETY]
[2018-06-29] MEDS: FAMOTIDINE 20 MG/50 ML IVPB 20 MG/50 ML MG IVPB SCH ×2 (11:03→22:06)
[2018-06-29] MEDS: methylPREDNISolone NA SUCC 125 MG/2 ML VIAL IVPB SCH ×2 (11:04→22:16)
--- NOTE | 2018-06-29 11:45 | PN ---
Progress Note (short form) - Note Progress Note: NEUROLOGY PROGRESS: Events reviewed and discussed with staff. Cardiology consult read and appreciated. Pt reports no further episodes of panic attacks with addition of clonazepam 1 mg po qhs, however generally sleep is fair to poor. Now day #4 of Solumedrol. Admits he feels depressed that he cannot participate in family activities due to his M.S. Had stress test and no noted ischemia. MRI of brain C+/C- (reviewed): extensive demyelinating plaques in periventricular region B/L. New enhancing lesion adjacent to the L lateral ventricle. MRI of C spine C+/C- (reviewed): demyelination at C3/C4/C5 with mild disc bulges at C4/C5,C5/C6, C6/C7. ? suspicious thyroid nodule ANDRE: -LHermitte's. NEURO: Awake, alert, cooperative. Ox x 3. EOM full with L gaze conjugate nystagmus. Reflexes brisk. B/L Babinksi's. Spastic gait Impression:1. Chronic MS with disease progression Clinically and radiographically). 2. Depression/Anxiety 3. Spastic Paraparesis Suggest: Continue Solumedrol 500 mg IVP BID Pt agreeable to transition to Ocrelizumab from [facility] Obtain recent YULISSA virus serology Try buproprion xl 150 mg po qd Continue PT with quad cane Thank you very much, Chidi Tong MD
--- NOTE | 2018-06-29 12:09 | PN ---
Progress Note, Physician Chief Complaint: Pt had MRI of Brain and C spine Pt is having no falls Pt says he is fluid overloaded - Current Medication List Current Medications: Active Medications Acetaminophen (Tylenol -) 650 mg PO Q6H PRN PRN Reason: PAIN LEVEL 7 - 10 Baclofen (Lioresal -) 20 mg PO TID [facility] Last Admin: 06/29/18 06:13 Dose: 20 mg Bupropion HCl (Wellbutrin Xl -) 150 mg PO DAILY [facility] Clonazepam (Klonopin -) 1 mg PO HS [facility] Last Admin: 06/28/18 22:08 Dose: 1 mg Sodium Chloride (Normal Saline -) 1,000 mls @ 42 mls/hr IV ASDIR [facility] Last Admin: 06/27/18 09:36 Dose: 42 mls/hr Famotidine/Sodium Chloride (Pepcid 20 Mg Premixed Ivpb -) 20 mg in 50 mls @ 100 mls/hr IVPB BID [facility] Last Admin: 06/29/18 11:03 Dose: 100 mls/hr Methylprednisolone Sodium Succinate (Solu-Medrol -) 500 mg IVPB BID [facility] Stop: 06/30/18 12:59 Last Admin: 06/29/18 11:04 Dose: 500 mg Ondansetron HCl (Zofran Injection) 4 mg IVPUSH Q6H PRN PRN Reason: NAUSEA - Objective Vital Signs: Vital Signs Temperature 98 F 06/29/18 10:00 Pulse Rate 58 L 06/29/18 10:00 Respiratory Rate 20 06/29/18 10:00 Blood Pressure 130/60 06/29/18 10:00 O2 Sat by Pulse Oximetry (%) 97 06/28/18 21:00 Constitutional: Yes: No Distress Eyes: Yes: Conjunctiva Clear, EOM Intact, Other (H/O Optic neuritis) HENT: Yes: Atraumatic Neck: Yes: Supple, Trachea Midline Cardiovascular: Yes: Regular Rate and Rhythm, S1, S2 Respiratory: Yes: Regular, CTA Bilaterally Gastrointestinal: Yes: Normal Bowel Sounds, Soft Musculoskeletal: Yes: Joint Stiffness, Muscle Weakness Edema: LLE: 1+, RLE: 1+ Neurological: Yes: Alert, Oriented, Cran Nerves II-XII Intact, Unsteady Gait Labs: CBC, BMP 06/29/18 05:30 06/29/18 05:30 INR, PTT INR 1.10 (0.83-1.09) H 06/24/18 20:18 Problem List - Problems (1) Multiple sclerosis Code(s): G35 - MULTIPLE SCLEROSIS (2) Pre-syncope Code(s): R55 - SYNCOPE AND COLLAPSE (3) Palpitation Code(s): R00.2 - PALPITATIONS (4) Obesity (BMI 30.0-34.9) Code(s): E66.9 - OBESITY, UNSPECIFIED (5) Optic neuritis Code(s): H46.9 - UNSPECIFIED OPTIC NEURITIS (6) Paresthesia of both feet Code(s): R20.2 - PARESTHESIA OF SKIN (7) Chest pain Code(s): R07.9 - CHEST PAIN, UNSPECIFIED Assessment/Plan (1) Multiple sclerosis Code(s): G35 - MULTIPLE SCLEROSIS (2) Pre-syncope Code(s): R55 - SYNCOPE AND COLLAPSE (3) Palpitation Code(s): R00.2 - PALPITATIONS (4) Obesity (BMI 30.0-34.9) Code(s): E66.9 - OBESITY, UNSPECIFIED (5) Optic neuritis Code(s): H46.9 - UNSPECIFIED OPTIC NEURITIS (6) Paresthesia of both feet Code(s): R20.2 - PARESTHESIA OF SKIN (7) Chest pain Code(s): R07.9 - CHEST PAIN, UNSPECIFIED spoke with Cardiology: Laxi scan done and WNL Pt had MRI Brain/ Cervical/ Suggestive of Demelenation Pt is off IV fluids Neurology FU appreciated
[2018-06-29] MEDS ORDERED: PT OWN MED DRAWER 7, Y5N ONE (13:29)
--- NOTE | 2018-06-29 13:36 | PN ---
Progress Note, Physician History of Present Illness: 47 y/o white male BIBEMS to [facility] complaining of a near syncopal episode with persistent nausea. Pt states he suddenly felt like I was going to pass out while walking to the bathroom after waking from a nap. Reports feeling cold and clamminess in both hands as well as shortness of breath with rapid breathing. The episode lasted approx. 20 minutes in duration before resolving spontaneously. Denies loss of consciousness. [place] nauseous with occasional burping after the incident. Walks with cane or rollator. No change in ability to ambulate. No known sick contacts. This is the pts third visit to this department in the past two days. The previous chief complaints were for 2-3 minutes of palpitations. Pt was evaluated in the emergency department by cardiology this morning after undergoing reportedly normal Echo. Pt has a h/o of MS managed with monthly infusion of Tysabri, last in middle of May. No change in dosage or medication regimen. Followed by Dr. Tong. Last MRI in [facility] dated 12/13/2010. Not sure of the date of last MS flair. Neurologist: Dr. 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 Denies known toxic exposures. - Denies recent travel in past two months. - EtOH: Social, denies any in last 48 hours - Tobacco: Denies - Street Drugs: Denies - No new tattoos or piercings Medical Hx: - Multiple Sclerosis Surgical Hx: - Pt denies past surgical history. - Current Medication List Current Medications: Active Medications Acetaminophen (Tylenol -) 650 mg PO Q6H PRN PRN Reason: PAIN LEVEL 7 - 10 Baclofen (Lioresal -) 20 mg PO TID [facility] Last Admin: 06/29/18 06:13 Dose: 20 mg Bupropion HCl (Wellbutrin Xl -) 150 mg PO DAILY [facility] Clonazepam (Klonopin -) 1 mg PO HS [facility] Last Admin: 06/28/18 22:08 Dose: 1 mg Sodium Chloride (Normal Saline -) 1,000 mls @ 42 mls/hr IV ASDIR [facility] Last Admin: 06/27/18 09:36 Dose: 42 mls/hr Famotidine/Sodium Chloride (Pepcid 20 Mg Premixed Ivpb -) 20 mg in 50 mls @ 100 mls/hr IVPB BID [facility] Last Admin: 06/29/18 11:03 Dose: 100 mls/hr Methylprednisolone Sodium Succinate (Solu-Medrol -) 500 mg IVPB BID [facility] Stop: 06/30/18 12:59 Last Admin: 06/29/18 11:04 Dose: 500 mg Ondansetron HCl (Zofran Injection) 4 mg IVPUSH Q6H PRN PRN Reason: NAUSEA - Objective Vital Signs: Vital Signs Temperature 98 F 06/29/18 10:00 Pulse Rate 58 L 06/29/18 10:00 Respiratory Rate 20 06/29/18 10:00 Blood Pressure 130/60 06/29/18 10:00 O2 Sat by Pulse Oximetry (%) 97 06/28/18 21:00 Eyes: Yes: WNL, Conjunctiva Clear, EOM Intact HENT: Yes: WNL, Atraumatic, Normocephalic Neck: Yes: WNL, Supple, Trachea Midline Cardiovascular: Yes: WNL, Regular Rate and Rhythm Respiratory: Yes: WNL, Regular, CTA Bilaterally Gastrointestinal: Yes: WNL, Normal Bowel Sounds Genitourinary: Yes: WNL Musculoskeletal: Yes: WNL Extremities: Yes: WNL Edema: No Integumentary: Yes: WNL Neurological: Yes: WNL, Alert, Oriented ...Motor Strength: WNL Psychiatric: Yes: WNL Labs: CBC, BMP 06/29/18 05:30 06/29/18 05:30 INR, PTT INR 1.10 (0.83-1.09) H 06/24/18 20:18 Assessment/Plan - Problems (1) Obesity (BMI 30.0-34.9) Code(s): E66.9 - OBESITY, UNSPECIFIED (2) Multiple sclerosis Code(s): G35 - MULTIPLE SCLEROSIS (3) Nausea Code(s): R11.0 - NAUSEA (4) Pre-syncope Assessment/Plan: orthostatic Vital sign checks. Telemetry (associated palpitations). Maintain hydration. Caroitid artery US unremarkable. ECHO: normal LVEF. Stress Lexiscan MIBI 06/26/2018: no myocardial ischemia. Code(s): R55 - SYNCOPE AND COLLAPSE (5) Palpitation Assessment/Plan: Telemetry monitoring; if unremakable, may require long-term outpatient monitoring. ECHO: normal lVEF. Stress Lexiscan MIBI 06/26/2018: no myocardial ischemia.Pt's HR was >160 bpm within the 1st minute of Lexicsan infusion (sinus tachycardia0; he was asymptomatic throughout the procedure. Code(s): R00.2 - PALPITATIONS (6) Panic anxiety syndrome Assessment/Plan: Pt says he knows the cause of his panic attacks:"I'm a Type A personality, and have to be in total control of every situation". Would benefit from psychological counseling, desensitization/biofeedback techniques. Code(s): F41.0 - PANIC DISORDER [EPISODIC PAROXYSMAL ANXIETY]
[2018-06-29] MEDS ORDERED: FUROSEMIDE 40 MG/4 ML INJECTABLE VIAL IVPUSH ONE (16:15)
[2018-06-29] MEDS: SODIUM CHLORIDE 1,000 ML IV SCH (17:25)
[2018-06-29] MEDS: clonazePAM 0.5 MG TABLET PO SCH (22:06)
[2018-06-30] MEDS: SODIUM CHLORIDE 1,000 ML IV SCH (06:30)
[2018-06-30] MEDS: BACLOFEN 10 MG TABLET (FP) PO SCH ×2 (06:30→13:22)
[2018-06-30] MEDS: FAMOTIDINE 20 MG/50 ML IVPB 20 MG/50 ML MG IVPB SCH (09:55)
[2018-06-30] MEDS: methylPREDNISolone NA SUCC 125 MG/2 ML VIAL IVPB SCH (09:55)
[2018-06-30] MEDS ORDERED: PT OWN MED DRAWER 7, Y5N ONE (09:57)
--- NOTE | 2018-06-30 14:51 | PN ---
Progress Note, Physician Chief Complaint: Pt A&Ox3; sitting up at bedside. No dizziness, chest pain, or dyspnea. - Current Medication List Current Medications: Active Medications Acetaminophen (Tylenol -) 650 mg PO Q6H PRN PRN Reason: PAIN LEVEL 7 - 10 Baclofen (Lioresal -) 20 mg PO TID [facility] Last Admin: 06/30/18 13:22 Dose: 20 mg Bupropion HCl (Wellbutrin Xl -) 150 mg PO DAILY [facility] Last Admin: 06/30/18 09:58 Dose: 150 mg Clonazepam (Klonopin -) 1 mg PO HS [facility] Last Admin: 06/29/18 22:06 Dose: 1 mg Sodium Chloride (Normal Saline -) 1,000 mls @ 42 mls/hr IV ASDIR [facility] Last Admin: 06/30/18 06:30 Dose: Not Given Famotidine/Sodium Chloride (Pepcid 20 Mg Premixed Ivpb -) 20 mg in 50 mls @ 100 mls/hr IVPB BID [facility] Last Admin: 06/30/18 09:55 Dose: 100 mls/hr Ondansetron HCl (Zofran Injection) 4 mg IVPUSH Q6H PRN PRN Reason: NAUSEA - Objective Vital Signs: Vital Signs Temperature 97.7 F 06/30/18 14:26 Pulse Rate 58 L 06/30/18 14:26 Respiratory Rate 20 06/30/18 14:26 Blood Pressure 122/73 06/30/18 14:26 O2 Sat by Pulse Oximetry (%) 97 06/30/18 09:00 Labs: CBC, BMP 06/29/18 05:30 06/29/18 05:30 INR, PTT INR 1.10 (0.83-1.09) H 06/24/18 20:18 Problem List - Problems (1) Obesity (BMI 30.0-34.9) Code(s): E66.9 - OBESITY, UNSPECIFIED (2) Multiple sclerosis Code(s): G35 - MULTIPLE SCLEROSIS (3) Nausea Code(s): R11.0 - NAUSEA (4) Pre-syncope Code(s): R55 - SYNCOPE AND COLLAPSE (5) Palpitation Code(s): R00.2 - PALPITATIONS (6) Panic anxiety syndrome Code(s): F41.0 - PANIC DISORDER [EPISODIC PAROXYSMAL ANXIETY]
--- NOTE | 2018-06-30 14:51 | PN ---
Progress Note, Physician - Current Medication List Current Medications: Active Medications Acetaminophen (Tylenol -) 650 mg PO Q6H PRN PRN Reason: PAIN LEVEL 7 - 10 Baclofen (Lioresal -) 20 mg PO TID [facility] Last Admin: 06/30/18 13:22 Dose: 20 mg Bupropion HCl (Wellbutrin Xl -) 150 mg PO DAILY [facility] Last Admin: 06/30/18 09:58 Dose: 150 mg Clonazepam (Klonopin -) 1 mg PO HS [facility] Last Admin: 06/29/18 22:06 Dose: 1 mg Sodium Chloride (Normal Saline -) 1,000 mls @ 42 mls/hr IV ASDIR [facility] Last Admin: 06/30/18 06:30 Dose: Not Given Famotidine/Sodium Chloride (Pepcid 20 Mg Premixed Ivpb -) 20 mg in 50 mls @ 100 mls/hr IVPB BID [facility] Last Admin: 06/30/18 09:55 Dose: 100 mls/hr Ondansetron HCl (Zofran Injection) 4 mg IVPUSH Q6H PRN PRN Reason: NAUSEA - Objective Vital Signs: Vital Signs Temperature 97.7 F 06/30/18 14:26 Pulse Rate 58 L 06/30/18 14:26 Respiratory Rate 20 06/30/18 14:26 Blood Pressure 122/73 06/30/18 14:26 O2 Sat by Pulse Oximetry (%) 97 06/30/18 09:00 Labs: CBC, BMP 06/29/18 05:30 06/29/18 05:30 INR, PTT INR 1.10 (0.83-1.09) H 06/24/18 20:18 Problem List - Problems (1) Obesity (BMI 30.0-34.9) Code(s): E66.9 - OBESITY, UNSPECIFIED (2) Multiple sclerosis Code(s): G35 - MULTIPLE SCLEROSIS (3) Nausea Code(s): R11.0 - NAUSEA (4) Pre-syncope Code(s): R55 - SYNCOPE AND COLLAPSE (5) Palpitation Code(s): R00.2 - PALPITATIONS (6) Panic anxiety syndrome Code(s): F41.0 - PANIC DISORDER [EPISODIC PAROXYSMAL ANXIETY]
[2018-06-30 18:02] VITALS: BP 118/65; PULSE 55; TEMP 97.7
--- NOTE | 2018-06-30 18:28 | PN ---
Progress Note (short form) - Note Progress Note: Neurology progress: Events reviewed pt examined w at bedside. Completed medrol infusion number [address] this Am. Seen by Dr Guerrier in eval of thyroid cyst. Pt notes walking slightly better when ambulating to the bathroom. Last Tysabri infusion was 06/12/18. No further chest complaints. Cleared by cardiology. Exam: Negative Lhermitte's CN's normal No drift, reduced ROBERT'S Mild Left ankle dorsiflexion weakness Brisk reflexes b/l Babinski's. Slightly reduced vibration feet. Spastic paraplegic gait. Impression: MS/Exacerbation. Slightly improved on steroids. Plan: Stable for d/c on steroid taper. Will change DMT to ocrevis Endo F/U as Outpatient. Thank you very much, Chidi Tong MD
--- NOTE | 2018-06-30 21:07 | PN ---
Progress Note, Physician Chief Complaint: Pt was DCed by Neurology I was not informed - Objective Vital Signs: Vital Signs Temperature 97.7 F 06/30/18 18:00 Pulse Rate 55 L 06/30/18 18:00 Respiratory Rate 20 06/30/18 18:00 Blood Pressure 118/65 06/30/18 18:00 O2 Sat by Pulse Oximetry (%) 97 06/30/18 09:00 Constitutional: Yes: No Distress Eyes: Yes: Conjunctiva Clear, EOM Intact HENT: Yes: Atraumatic, Normocephalic Neck: Yes: Supple, Trachea Midline Cardiovascular: Yes: Regular Rate and Rhythm, S1, S2 Respiratory: Yes: Regular, CTA Bilaterally Gastrointestinal: Yes: Normal Bowel Sounds, Soft Musculoskeletal: Yes: Joint Stiffness, Muscle Weakness Edema: No Labs: CBC, BMP 06/29/18 05:30 06/29/18 05:30 INR, PTT INR 1.10 (0.83-1.09) H 06/24/18 20:18 Problem List - Problems (1) Multiple sclerosis Code(s): G35 - MULTIPLE SCLEROSIS (2) Pre-syncope Code(s): R55 - SYNCOPE AND COLLAPSE (3) Palpitation Code(s): R00.2 - PALPITATIONS (4) Obesity (BMI 30.0-34.9) Code(s): E66.9 - OBESITY, UNSPECIFIED (5) Optic neuritis Code(s): H46.9 - UNSPECIFIED OPTIC NEURITIS (6) Paresthesia of both feet Code(s): R20.2 - PARESTHESIA OF SKIN (7) Chest pain Code(s): R07.9 - CHEST PAIN, UNSPECIFIED Assessment/Plan (1) Multiple sclerosis Code(s): G35 - MULTIPLE SCLEROSIS (2) Pre-syncope Code(s): R55 - SYNCOPE AND COLLAPSE (3) Palpitation Code(s): R00.2 - PALPITATIONS (4) Obesity (BMI 30.0-34.9) Code(s): E66.9 - OBESITY, UNSPECIFIED (5) Optic neuritis Code(s): H46.9 - UNSPECIFIED OPTIC NEURITIS (6) Paresthesia of both feet Code(s): R20.2 - PARESTHESIA OF SKIN (7) Chest pain Code(s): R07.9 - CHEST PAIN, UNSPECIFIED spoke with Cardiology: Laxi scan done and WNL Pt had MRI Brain/ Cervical/ Suggestive of Demelenation Pt is off IV fluids Neurology FU appreciated Stable for d/c on steroid taper. Will change DMT to ocrevis Pt DCed By Neurology without informing PMD
--- NOTE | 2018-06-30 23:31 | CONSULT ---
Consult Consult Specialty:: endocrine Referred by:: dr.david raya Reason for Consultation:: left thyroid nodule - History of Present Illness Chief Complaint: thyroid nodule found incidentally History of Present Illness: 47 yo male,pmh MS maintained on Tysmantaabi infusion therapy. ed history thyroid disease.admitted for syncopal episode,has had several episodes of near syncope.recent difficulty with ataxia and ambulation.cervical mri performed showed left thyroid nodule,he denies head and neck irradiation,denies dysphagia , or vocal hoarseness - History Source History Provided By: Patient - Past Medical History PHONE SCREENER: Yes: Multiple Sclerosis Psych: Yes: Anxiety Musculoskeletal: Yes: Chronic low back pain, Other (Gait disorder) - Alcohol/Substance Use Hx Alcohol Use: No - Smoking History Smoking history: Never smoked Have you smoked in the past 12 months: No Home Medications - Allergies Allergies/Adverse Reactions: Allergies Allergy/AdvReac Type Severity Reaction Status Date / Time No Known Allergies Allergy Verified 06/23/18 09:36 - Home Medications Home Medications: Ambulatory Orders Baclofen 10 mg PO TID 06/23/18 Natalizumab [Tysabri] 200 mg IV MONTHLY 06/23/18 Family Disease History - Family Disease History Family Disease History: Heart Disease: Grandparent (grandfather at 69 yrs old of ?hear condition) Review of Systems - Review of Systems Constitutional: reports: Weakness Eyes: reports: No Symptoms HENT: reports: No Symptoms Neck: reports: No Symptoms Cardiovascular: reports: No Symptoms Respiratory: reports: No Symptoms Gastrointestinal: reports: No Symptoms Genitourinary: reports: No Symptoms Integumentary: reports: No Symptoms Neurological: reports: Incoordination, Numbness, Pre-Existing Deficit, Syncope, Unsteady Gait Physical Exam Vital Signs: Vital Signs Temperature 97.7 F 06/30/18 18:00 Pulse Rate 55 L 06/30/18 18:00 Respiratory Rate 20 06/30/18 18:00 Blood Pressure 118/65 06/30/18 18:00 O2 Sat by Pulse Oximetry (%) 97 06/30/18 09:00 Constitutional: Yes: Calm Eyes: Yes: EOM Intact HENT: Yes: Normocephalic Neck: Yes: Trachea Midline, Other (left lobe thyroid nodule barely palpable) Cardiovascular: Yes: WNL Respiratory: Yes: WNL Gastrointestinal: Yes: WNL Labs: CBC, BMP 06/29/18 05:30 06/29/18 05:30 Problem List - Problems (1) Thyroid nodule Code(s): E04.1 - NONTOXIC SINGLE THYROID NODULE (2) Chest pain Code(s): R07.9 - CHEST PAIN, UNSPECIFIED (3) Laceration of chin without complication Code(s): S01.81XA - LACERATION W/O FOREIGN BODY OF OTH PART OF HEAD, INIT ENCNTR Qualifiers: Encounter type: initial encounter Qualified Code(s): S01.81XA - Laceration without foreign body of other part of head, initial encounter (4) Multiple sclerosis Code(s): G35 - MULTIPLE SCLEROSIS (5) Optic neuritis Code(s): H46.9 - UNSPECIFIED OPTIC NEURITIS Assessment/Plan euthyroid thyroid nodule 1.2 cm left lobe nodule Laboratory Tests 06/25/18 06/29/18 05:10 05:30 Sodium 141 Potassium 4.0 Chloride 106 Carbon Dioxide 30 Anion Gap 6 L BUN 17 Creatinine 0.9 Creat Clearance w eGFR 91.25 Random Glucose 146 H TSH 1.93 D Free T4 0.93 plan: thyroid sonogram reevaluation as outpatient incidental thyroid nodule finding
== END 2018-06-30 18:49 | disposition home or self-care (01) | DRG 59 ==
LOC: JER 17:42 → JERBED 06-25 00:33 → J4W 06-25 18:55 → OBSVTOIN 06-26 09:55
PROVIDERS: ADMIT Internal Medicine; ATTEND Internal Medicine
DX: G35 Multiple sclerosis (principal); H46.9 Unspecified optic neuritis; R55 Syncope and collapse; R12 Heartburn; R11.0 Nausea; R00.2 Palpitations; E66.9 Obesity, unspecified; Z68.32 Body mass index [BMI] 32.0-32.9, adult; M54.5 Low back pain; R26.9 Unspecified abnormalities of gait and mobility; R20.2 Paresthesia of skin; R07.89 Other chest pain; F41.0 Panic disorder [episodic paroxysmal anxiety]; F41.8 Other specified anxiety disorders; E04.1 Nontoxic single thyroid nodule
CPT/HCPCS: 36415; 70450-TC; 70553-TC; 72156-TC; 74177-TC; 78452-TC; 80048; 80053; 80061; 80307; 81003; 82550; 82553; 83690; 83721; 83735; 84100; 84439; 84443; 84484; 85025; 85379; 85610; 85730; 87086; 87798; 93005; 93010; 93017; 93880-TC; 99285-25; A9502; G0378; J0131; J0475; J2785; J7030